=== PATIENT | female | born 1970 | race Caucasian/White ===

== ENCOUNTER 2019-12-23 06:59 | Outpatient (NON) | payer BC, SELFPAY ==
[2019-12-23 18:25] LABS: SARS-CoV-2 RNA PCR Negative
== END 2019-12-23 07:00 ==
PROVIDERS: PCP Internal Medicine; Visit Provider Internal Medicine
DX: Z20.828 Contact with and (suspected) exposure to other viral communicable diseases (principal); R09.89 Other specified symptoms and signs involving the circulatory and respiratory systems
CPT/HCPCS: 87635; C9803; U0003

== ENCOUNTER 2020-05-16 10:05 | Outpatient (CLI) | payer BC, SELFPAY ==
--- NOTE | ~2020-05-16 | MM_ITS ---
EXAMINATION: MM screening haseeb BI w leoncio HISTORY: Screening mammogram TECHNIQUE: Craniocaudal and mediolateral oblique 3-D tomosynthesis images were obtained and synthetic 2-D images were generated. Bilateral rotated lateral CC views. CAD analysis was submitted and interp reted. COMPARISON: 10/04/2012, 08/01/2009 bilateral digital screening mammogram examinations BREAST PARENCHYMAL COMPOSITION: The breasts are extremely dense, which lowers the sensitivity of mamm ography. FINDINGS: Approximately 6 x 9.5 mm circumscribed mass is noted in the posterior inner mid left breast . Diagnostic left mammogram and left breast ultrasound examination are recommended. Otherwise there is no evidence of suspicious mass, calcification, or architectural distortion to sugg est malignancy in either breast. There has been no other suspicious interval change. IMPRESSION: 1. New 6 x 9.5 mm circumscribed mass in the posterior inner mid left breast 2. Diagnostic left mammogram and left breast ultrasound examination are recommended. BI-RADS Category 0: Incomplete: Needs additional imaging evaluation. Reviewed, dictated and finalized at location A. TRY KILLER IMPRESSION: 1. New 6 x 9.5 mm circumscribed mass in the posterior inner mid left breast 2. Diagnostic left mammogram and left breast ultrasound examination are recomme nded. BI-RADS Category 0: Incomplete: Needs additional imaging evaluation.
== END 2020-05-16 10:06 | disposition home or self-care (01) ==
LOC: ANHIMG 10:08
PROVIDERS: PCP Internal Medicine; Visit Provider Obstetrics & Gynecology
DX: Z12.31 Encounter for screening mammogram for malignant neoplasm of breast (principal); R92.8 Other abnormal and inconclusive findings on diagnostic imaging of breast
CPT/HCPCS: 77063; 77067

== ENCOUNTER 2020-05-18 16:58 | Outpatient (CLI) | payer BC, SELFPAY | END 2020-05-18 16:59 | disposition home or self-care (01) | LOC: ANHCOVIDVC 16:58 | PROVIDERS: PCP Internal Medicine | DX: Z23 Encounter for immunization (principal) | CPT/HCPCS: 0001A; 91300 ==

== ENCOUNTER 2020-06-01 09:37 | Outpatient (CLI) | payer BC, SELFPAY ==
--- NOTE | ~2020-06-01 | DEXA_ITS ---
Bone Density Report Name: Sandy Hicks Age: 50 Sex: Female Ethnicity: White Date of : 1970 Indication: postmenopausal; Referring Provider: GENESIS MCKINLEY Study: Bone densitometry was performed. Exam Date: June 01, 2020 Accession number: [id number] Bone Density: Region BMD T-score Z-score Classification AP Spine (L1-L4) 0.740 -2.8 -2.0 Osteoporosis Femoral Neck (Left) 0.573 -2.5 -1.7 Osteoporosis Total Hip (Left) 0.698 -2.0 -1.5 Osteopenia Total Hip Bilateral Avg 0.741 -1.7 -1.2 Osteopenia Femoral Neck (Right) 0.610 -2.2 -1.3 Osteopenia Total Hip (Right) 0.782 -1.3 -0.8 Osteopenia World Health Organization criteria for BMD impression classify patients as: Normal (T-score at or above -1.0), Osteopenia (T-score between -1.0 and -2.5), or Osteoporosis (T-score at or below -2.5). 10-year Fracture Risk: FRAX not reported because: Some T-score for Spine Total or Hip Total or Femoral Neck at or below -2.5 Clinical Information Provided by Patient: Has used the following medications: Vitamin D, Calcium Patient maximum height was 63 Menopause Age: 48 Does not regularly consume dairy products Drinks caffeinated beverages Onset of menses at age 12 Number of children 1 Impression: The patient has osteoporosis, based on the Total Spine T-score. Discussion: HIGH RISK OF FRACTURE. BONE DENSITY IS UNDESIRABLY LOW AT ONE OR MORE SKELETAL SITES, CONSISTENT WITH OSTEOPOROSIS. ALSO, BONE DENSITY IS LOWER THAN EXPECTED FOR AGE AND SEX AT ONE OR MORE SKELETAL SITES; RECOMMEND A DILIGENT SEARCH FOR SECONDARY CAUSES OF BONE LOSS. This patient's lowest T-score meets the World Health Organization's (WHO) criteria for osteoporosis at one or more sites (T-score -2.5 or below). In untreated patients, the risk of osteoporotic fracture increases approximately two-fold for each 1.0 SD decrease in T-score. Low bone density is not the only risk factor for fracture; also consider factors such as patient's age, frailty or poor health, risk of falling, risk of injury, previous osteoporotic fracture, family history of osteoporosis, cigarette smoking, low body weight, etc. Not everyone with low bone mineral density has osteoporosis; osteomalacia and other metabolic bone disorders should also be considered. Patients who have osteoporosis should be evaluated for specific diseases and conditions (secondary causes) that may cause or contribute to bone loss. The [place] [employer] of Clinical Endocrinologists (AACE) and National Osteoporosis Foundation (NOF) recommend pharmacologic intervention for all postmenopausal women whose T-score is in this range. Also, this patient's bone mineral density is below the range considered normal for healthy age-, sex-, and race-matched controls at least one site (Z-score -2.0 or below). This warrants careful
== END 2020-06-01 09:38 | disposition home or self-care (01) ==
LOC: ANHIMG 09:38
PROVIDERS: PCP Internal Medicine; Visit Provider Obstetrics & Gynecology
DX: Z78.0 Asymptomatic menopausal state (principal); M81.0 Age-related osteoporosis without current pathological fracture; M85.852 Other specified disorders of bone density and structure, left thigh; M85.851 Other specified disorders of bone density and structure, right thigh
CPT/HCPCS: 77080

== ENCOUNTER 2020-06-07 13:16 | Outpatient (CLI) | payer BC, SELFPAY ==
--- NOTE | ~2020-06-07 | MMUS_ITS ---
EXAMINATION: MM diagnostic mammo unilat LT, US breast LT limited HISTORY: Left breast mass on screening mammogram TECHNIQUE: Additional 3-D tomosynthesis images of the left breast were performed and synthetic 2-D im ages were generated. CAD analysis was submitted and interpreted. High resolution limited left breast ultrasound was performed. COMPARISON: 05/16/2020, 10/04/2012, 08/01/2009 FINDINGS: MAMMOGRAPHIC FINDINGS: There is a 9 mm x 5 mm circumscribed, equal density mass in the middle third of inner breast at the 9 :00 location 5 cm from the nipple. No associated architectural distortion or suspicious calcification are identified. ULTRASOUND: There is a 9 mm x 3 mm oval, circumscribed, parallel, anechoic mass with internal septation at the 9: 00 location 4 cm from the nipple corresponding to the mammographic finding in question. The mass demo nstrates posterior acoustic enhancement and no internal vascularity. IMPRESSION: 1. Probably benign left breast mass. 2. Recommend 6 month follow-up left diagnostic mammogram and ultrasound. BI-RADS category 3, probably benign findings. Reviewed, dictated and finalized at location A. IMPRESSION: 1. Probably benign left breast mass. 2. Recommend 6 month follow-up left diagnostic mammogram and ultrasound. BI-RADS category 3, probably benign findings.
== END 2020-06-07 13:17 | disposition home or self-care (01) ==
PROVIDERS: PCP Internal Medicine; Visit Provider Obstetrics & Gynecology
DX: R92.8 Other abnormal and inconclusive findings on diagnostic imaging of breast (principal)
CPT/HCPCS: 76642; 77065

== ENCOUNTER 2020-06-08 16:57 | Outpatient (CLI) | payer BC, SELFPAY | END 2020-06-08 16:58 | disposition home or self-care (01) | LOC: ANHCOVIDVC 16:57 | PROVIDERS: PCP Internal Medicine | DX: Z23 Encounter for immunization (principal) | CPT/HCPCS: 0002A; 91300 ==

== ENCOUNTER 2020-11-05 00:31 | Day surgery (SDC) | payer BC, SELFPAY ==
[2020-10-22 13:05] VITALS: BMI 20.7
--- NOTE | 2020-11-05 09:30 | WPDANESEPPF ---
Anes - Initial Pre Proc Eval Procedure: Operation Date: 11/05/20 13:00 Proposed Procedures p Screening Colonoscopy - Jonas Rojas MD Date/Time: 11/05/20 09:30 Surgeon: Jonas Rojas MD Pre Op Diagnosis: neoplasm screening Patient Data Age: 50 Gender: F Height: 1.6 m Weight: 53 kg Allergies Allergy/AdvReac Type Severity Reaction Status Date / Time No Known Allergies Allergy Verified 11/05/20 11:51 Home Medications Medication Instructions Recorded Confirmed Type sertraline 50 mg tablet 75 mg PO DAILY #135 tablet 12/16/19 10/22/20 Rx multivitamin,[id number] 1 tablet PO DAILY 03/22/20 10/22/20 History ibandronate 150 mg tablet 150 mg PO MONTHLY #3 tablet 06/18/20 10/22/20 Rx calcium carbonate-vitamin D3 2 cap PO DAILY 10/22/20 10/22/20 History [Calcium 600 + D(3)] cholecalciferol (vitamin D3) 25 mcg PO DAILY 10/22/20 10/22/20 History [Vitamin D3] Patient hx anesthesia problems: none Family hx anesthesia problems: none PMFSH Past Medical History Medical History (Updated 11/05/20 @ 09:30 by Armen Weeks DO) Anemia Anxiety Depression Kidney stones Marijuana use Missed Pyelonephritis Vaginal delivery Surgical History Surgical History History of elective Family History Family History (Updated 07/20/20 @ 14:54 by Loan Bruce MA) Grandparent Cancer Diabetes mellitus Mother Hypertension Mother Hypertension Family history of rheumatoid arthritis Family history of chronic obstructive pulmonary disease Family history of diabetes mellitus in first degree relative Diabetes mellitus Family history of type 2 diabetes mellitus Grandparent Diabetes mellitus Family history of rheumatoid arthritis Malignant neoplasm of prostate Cerebrovascular accident, Onset Age: 82 Father Family history of alcoholism Family history of heart disease in male family member before age 55 Patient's father is Social History Social History (Updated 09/24/20 @ 11:14 by Loan Bruce MA) Smoking packs per day: 1.5 Smoking cigarettes per day: 30.0 Years smoked: 35 Smoking pack-years: 52.50 Smoking status: Former smoker Tobacco type: cigarettes and e-cigarettes/vaping Second hand tobacco smoke exposure: No Additional smoking assessment comments: QUIT SMOKING 2018- STARTED VAPING AND USES 1-3MG POD DAILY Alcohol intake: former Substance use: current Substance use type: marijuana Other substance usage details: DAILY Living arrangements: with family Spiritual care concerns: No Anes - Eval Final PreProcedure Day of Procedure 11/05/20 09:30 Patient weight: normal Heart: regular rate and rhythm Lungs: clear to auscultation and normal air movement Airway: Mallampati scale class II Neurological: alert and oriented Last oral intake: >/= 8 hours ASA classification: III Emergent: no Anesthetic plan: proceed Anesthesia type and monitoring: general GIVS and standard monitoring Informed Consent: The patient's anesthetic plan and its attendant risks and benefits were discussed with the patient/family/POA. Questions were solicited and answers provided to the satisfaction of the patient/family/POA.
[2020-11-05 11:52] VITALS: BP 99/62; PULSE 74; RESP 20; TEMP 35.9; O2SAT 100; BMI 21.9
[2020-11-05] MEDS: LACTATED RINGERS 1,000 ML 150 ML IV CONT (12:07)
--- NOTE | 2020-11-05 12:33 | PM.HPGS ---
History of Present Illness History of Present Illness Consent: Risks, benefits, and alternatives have been discussed and questions answered. Patient agrees to proceed with procedure. Chief complaint: neoplasm screening Narrative: Sandy Hicks is a 50 year old female for for colon cancer screening. Review of Systems Review of Systems: All systems reviewed & are unremarkable except as noted in HPI and below PMFSH Past Medical History Medical History Anemia Anxiety Depression Kidney stones Marijuana use Missed Pyelonephritis Vaginal delivery Surgical History Surgical History History of elective Family History Family History Grandparent Cancer Diabetes mellitus Mother Hypertension Mother Hypertension Family history of rheumatoid arthritis Family history of chronic obstructive pulmonary disease Family history of diabetes mellitus in first degree relative Diabetes mellitus Family history of type 2 diabetes mellitus Grandparent Diabetes mellitus Family history of rheumatoid arthritis Malignant neoplasm of prostate Cerebrovascular accident, Onset Age: 82 Father Family history of alcoholism Family history of heart disease in male family member before age 55 Patient's father is Social History Social History Smoking packs per day: 1.5 Smoking cigarettes per day: 30.0 Years smoked: 35 Smoking pack-years: 52.50 Smoking status: Former smoker Tobacco type: cigarettes and e-cigarettes/vaping Second hand tobacco smoke exposure: No Additional smoking assessment comments: QUIT SMOKING 2018- STARTED VAPING AND USES 1-3MG POD DAILY Alcohol intake: former Substance use: current Substance use type: marijuana Other substance usage details: DAILY Living arrangements: with family Spiritual care concerns: No Meds Home Medications and Allergies Home Medications Medication Instructions Recorded Confirmed Type sertraline 50 mg tablet 75 mg PO DAILY #135 tablet 12/16/19 10/22/20 Rx multivitamin,[id number]-[id number] 1 tablet PO DAILY 03/22/20 10/22/20 History ibandronate 150 mg tablet 150 mg PO MONTHLY #3 tablet 06/18/20 10/22/20 Rx calcium carbonate-vitamin D3 2 cap PO DAILY 10/22/20 10/22/20 History [Calcium 600 + D(3)] cholecalciferol (vitamin D3) 25 mcg PO DAILY 10/22/20 10/22/20 History [Vitamin D3] Allergies Allergy/AdvReac Type Severity Reaction Status Date / Time No Known Allergies Allergy Verified 11/05/20 11:51 Vital Signs Vital Signs - 24 hr 11/05/20 11:52 Temperature 35.9 C L Pulse Rate 74 Respiratory Rate 20 Blood Pressure 99/62 L Pulse Oximetry 100 Exam Resp: Auscultation: clear to auscultation bilaterally Cardio: Rate: regular rate Rhythm: regular rhythm GI: GI Palp: Yes Soft to palpation and No Tenderness to palpation present (GI) Assessment and Plan Assessment and plan (1) Colon cancer screening: Code(s): Z12.11 - Encounter for screening for malignant neoplasm of colon Status: Acute Assessment and Plan: Colonoscopy with possible biopsy or polypectomy or cautery or injection of substances.
[2020-11-05 13:06] VITALS: BP 101/63; PULSE 66; RESP 20; O2SAT 99
[2020-11-05 13:16] VITALS: BP 110/68; PULSE 64; RESP 20; O2SAT 100
[2020-11-05 13:26] VITALS: BP 116/90; PULSE 68; RESP 18; O2SAT 100
== END 2020-11-05 13:36 | disposition home or self-care (01) ==
PROVIDERS: PCP Internal Medicine; Visit Provider Internal Medicine Gastroenterology
PROC: 0DJD8ZZ Inspection of Lower Intestinal Tract, Via Natural or Artificial Opening Endoscopic (ICD-10-PCS; CPT 45378; principal; 2020-11-05 13:00)
DX: Z12.11 Encounter for screening for malignant neoplasm of colon (principal); D64.9 Anemia, unspecified; F41.8 Other specified anxiety disorders; Z87.891 Personal history of nicotine dependence; F12.90 Cannabis use, unspecified, uncomplicated
CPT/HCPCS: 45378; J2704; J7120

== ENCOUNTER 2020-12-14 12:24 | Emergency (ER) | payer BC, SELFPAY ==
[2020-12-14 12:33] VITALS: BP 134/88; PULSE 80; RESP 18; TEMP 36.3; O2SAT 100
--- NOTE | 2020-12-14 12:59 | ED.UPPEXIN ---
HPI - Extremity Injury (Upper) General Chief Complaint: Extremity Injury, Upper Stated Complaint: FALL/INJURED R ELBOW/ARM Time Seen by Provider: 12/14/20 12:47 Source: patient and RN notes reviewed Mode of arrival: ambulatory Limitations: no limitations History of Present Illness HPI narrative: Patient presents today complaining of right shoulder pain. She slipped yesterday at work, falling yesterday onto her right arm. Reports the shoulder and upper arm only hurts when she raises it above her head. She currently rates her pain 1/10 at rest, which increases to 4/10 with movement. Denies numbness or tingling in the arm or hand. She has tried no [id number] interventions or medications prior to arrival. The pain continued to worsen throughout the night last night and she notified her employer, who wanted her to come get it looked at today. MD complaint: injury to: right, shoulder and arm Related Data Home Medications Medication Instructions Recorded Confirmed multivitamin,[id number] 1 tablet PO DAILY 03/22/20 12/14/20 Calcium 600 + D(3) 2 cap PO DAILY 10/22/20 12/14/20 cholecalciferol (vitamin D3) 25 mcg PO DAILY 10/22/20 12/14/20 [Vitamin D3] Allergies Allergy/AdvReac Type Severity Reaction Status Date / Time No Known Allergies Allergy Verified 12/14/20 12:32 Review of Systems Review of Systems: CONSTITUTIONAL: Denies body aches, fever, chills, or sweats. EYES: Denies visual changes, redness, or discharge. ENT: Denies rhinorrhea, congestion, sore throat, or otalgia. CARDIOVASCULAR: Denies chest pain, palpitations, or edema. RESPIRATORY: Denies cough or dyspnea. GASTROINTESTINAL: Denies abdominal pain, nausea, vomiting, or diarrhea. GENITOURINARY: Denies dysuria or hematuria. SKIN: Denies rash, itching, or wounds. MUSCULOSKELETAL: Denies back pain, or myalgia.+ Right upper arm and shoulder pain NEUROLOGIC: Denies headache, numbness, tingling, or weakness. PSYCH: Denies depression or anxiety. [facility] Past Medical History Medical History Anemia Anxiety Depression Kidney stones Marijuana use Missed Pyelonephritis Vaginal delivery Surgical History Surgical History History of elective Family History Family History Grandparent Cancer Diabetes mellitus Mother Hypertension Mother Hypertension Family history of rheumatoid arthritis Family history of chronic obstructive pulmonary disease Family history of diabetes mellitus in first degree relative Diabetes mellitus Family history of type 2 diabetes mellitus Grandparent Diabetes mellitus Family history of rheumatoid arthritis Malignant neoplasm of prostate Cerebrovascular accident, Onset Age: 82 Father Family history of alcoholism Family history of heart disease in male family member before age 55 Patient's father is Social History Social History Smoking packs per day: 1.5 Smoking cigarettes per day: 30.0 Years smoked: 35 Smoking pack-years: 52.50 Smoking status: Current every day smoker Tobacco type: cigarettes and e-cigarettes/vaping Second hand tobacco smoke exposure: No Additional smoking assessment comments: QUIT SMOKING 2018- STARTED VAPING AND USES 1-3MG POD DAILY Alcohol intake: former Substance use: current Substance use type: marijuana Other substance usage details: DAILY Spiritual care concerns: No Comments At time of signature, I have reviewed and agree with nursing past medical, surgical, social and family history unless otherwise noted. Please see nursing chart for further information. There is no relevant family history pertinent to the presenting complaint Exam Narrative: GENERAL: Well-appearing, we
== END 2020-12-14 13:04 | disposition home or self-care (01) ==
PROVIDERS: Emergency Provider Nurse Practitioner; PCP Internal Medicine
DX: S46.912A Strain of unspecified muscle, fascia and tendon at shoulder and upper arm level, left arm, initial encounter (principal); W01.0XXA Fall on same level from slipping, tripping and stumbling without subsequent striking against object, initial encounter; Y99.0 Civilian activity done for income or pay; F17.200 Nicotine dependence, unspecified, uncomplicated; F41.9 Anxiety disorder, unspecified; F32.9 Major depressive disorder, single episode, unspecified
CPT/HCPCS: 99212; G0463

== ENCOUNTER 2020-12-24 11:27 | Outpatient (CLI) | payer BC, SELFPAY ==
--- NOTE | ~2020-12-24 | MMUS_ITS ---
EXAMINATION: MM diagnostic haseeb LT w leoncio, US breast LT limited HISTORY: Six-month follow-up of 9:00 left breast TECHNIQUE: ML, MLO and craniocaudal 3-D tomosynthesis images of were performed and synthetic 2-D imag es were generated. CAD analysis was submitted and interpreted. High resolution targeted 9:00 left keara ast ultrasound was performed. COMPARISON: 06/07/2020 diagnostic left mammogram and limited left breast ultrasound 05/16/2020 bilateral digital screening mammogram BREAST PARENCHYMAL COMPOSITION: The breasts are heterogeneously dense, which may obscure small masses . FINDINGS: MAMMOGRAPHIC FINDINGS: Stable appearing circumscribed approximately 5 x 9.5 mm opacity at 9:00 at mid depth in the left joss st, not significantly changed since 05/16/2020 screening mammogram. No interval suspicious mass, architectural distortion, malignant calcification, skin thickening or re traction of the left breast is detected.. ULTRASOUND: 1:00 4 cm from nipple: 6.4 x 2.5 x 6.2 mm septated sonolucency with through transmission, consistent with septated benign cyst IMPRESSION: 1. Benign finding 2. Routine mammographic screening is recommended. BI-RADS Category 2: Benign finding(s). Reviewed, dictated and finalized at location A. IMPRESSION: 1. Benign finding 2. Routine mammographic screening is recommended. BI-RADS Category 2: Benign finding(s).
== END 2020-12-24 11:28 | disposition home or self-care (01) ==
LOC: ANHIMG 11:30
PROVIDERS: PCP Internal Medicine; Visit Provider Obstetrics & Gynecology
DX: N63.20 Unspecified lump in the left breast, unspecified quadrant (principal); R92.8 Other abnormal and inconclusive findings on diagnostic imaging of breast
CPT/HCPCS: 76642; 77061; 77065; G0279

== ENCOUNTER 2021-11-04 09:50 | Emergency (ER) | payer BC, SELFPAY ==
[2021-11-04 10:16] VITALS: BP 110/86; PULSE 71; RESP 16; TEMP 37.1; O2SAT 100
--- NOTE | 2021-11-04 10:43 | ED.SKABFB ---
HPI - Skin/Abscess/Foreign Bdy General Chief complaint: Skin/Abscess/Foreign Body Stated complaint: insect bite Time Seen by Provider: 11/04/21 10:43 Source: patient Mode of arrival: ambulatory Limitations: no limitations History of Present Illness HPI narrative: 51-year-old female presented for complaint of insect bite to the left mid calf first noticed yesterday. She outlined it with a pen and endorses redness and itching She denies significant pain or drainage. She has multiple insect bites and states she applies hand gore maker to them. She is concerned she has a brown recluse bite as she has been renovating her home. Denies numbness, tingling, weakness or fever or chills. Related Data Allergies Allergy/AdvReac Type Severity Reaction Status Date / Time No Known Allergies Allergy Verified 11/04/21 10:23 Review of Systems Review of Systems: CONSTITUTIONAL: Denies body aches, fever, chills, or sweats. CARDIOVASCULAR: Denies chest pain, palpitations, or edema. RESPIRATORY: Denies cough or dyspnea. GASTROINTESTINAL: Denies abdominal pain, nausea, vomiting, or diarrhea. SKIN: reports insect bite left leg MUSCULOSKELETAL: Denies back pain, joint pain, or myalgia. NEUROLOGIC: Denies headache, numbness, tingling, or weakness. [facility] Past Medical History Medical History Anemia Anxiety Depression Kidney stones Marijuana use Missed Pyelonephritis Vaginal delivery Surgical History Surgical History History of elective Family History Family History Grandparent Cancer Diabetes mellitus Mother Hypertension Mother Hypertension Family history of rheumatoid arthritis Family history of chronic obstructive pulmonary disease Family history of diabetes mellitus in first degree relative Diabetes mellitus Family history of type 2 diabetes mellitus Grandparent Diabetes mellitus Family history of rheumatoid arthritis Malignant neoplasm of prostate Cerebrovascular accident, Onset Age: 82 Father Family history of alcoholism Family history of heart disease in male family member before age 55 Patient's father is Social History Social History Smoking packs per day: 1.5 Smoking cigarettes per day: 30.0 Years smoked: 35 Smoking pack-years: 52.50 Smoking status: Current every day smoker Tobacco type: cigarettes and e-cigarettes/vaping Second hand tobacco smoke exposure: No Additional smoking assessment comments: QUIT SMOKING 2018- STARTED VAPING AND USES 1-3MG POD DAILY Alcohol intake: former Substance use: current Substance use type: marijuana Other substance usage details: DAILY Spiritual care concerns: No Comments At time of signature, I have reviewed and agree with nursing past medical, surgical, social and family history unless otherwise noted. Please see nursing chart for further information. There is no relevant family history pertinent to the presenting complaint Exam Narrative: GENERAL: Well-appearing ENT: Mucous membranes moist. Oropharynx without edema, erythema or lesions. CHEST: Clear to auscultation. HEART: Regular rate and rhythm. SKIN: Warm, dry. Left medial calf with 1cm erythema and pinpoint dark center, also with excoriation c/w scratching; nontender no drainage, no surrounding induration or fluctuance. NEURO: Alert and oriented x3. Course Course Emergency Course: Patient is aware of diagnosis, understands and agrees to treatment plan. Anticipatory guidance given. Patient agrees to follow-up as directed and is aware of reasons to seek care at the emergency department. Portions of this record may have been created with voice recognition software Level of Care: Express Care Visit Vital Si
== END 2021-11-04 10:57 | disposition home or self-care (01) ==
PROVIDERS: Emergency Provider Nurse Practitioner Family; PCP Internal Medicine
DX: S80.862A Insect bite (nonvenomous), left lower leg, initial encounter (principal); W57.XXXA Bitten or stung by nonvenomous insect and other nonvenomous arthropods, initial encounter; F17.290 Nicotine dependence, other tobacco product, uncomplicated; F41.9 Anxiety disorder, unspecified; F32.A Depression, unspecified
CPT/HCPCS: 99213; G0463

== ENCOUNTER 2022-11-20 12:45 | Outpatient (CLI) | payer BC, SELFPAY ==
--- NOTE | ~2022-11-20 | DEXA_ITS ---
Bone Density Report Name: JEFE SAMUELS Age: 52 Sex: Female Ethnicity: White Date of : 1970 Indication: postmenopausal; screening for osteoporosis; Referring Provider: GENESSI MCKINLEY Study: Bone densitometry was performed. Exam Date: November 20, 2022 Accession number: [id number] Bone Density: Region BMD T-score Z-score Classification AP Spine (L1-L4) 0.777 -2.5 -1.5 Osteoporosis Femoral Neck (Left) 0.587 -2.4 -1.4 Osteopenia Total Hip (Left) 0.691 -2.1 -1.4 Osteopenia Femoral Neck (Right) 0.598 -2.3 -1.3 Osteopenia Total Hip (Right) 0.738 -1.7 -1.1 Osteopenia Total Hip Mean 0.715 -1.9 -1.3 Osteopenia World Health Organization criteria for BMD impression classify patients as: Normal (T-score at or above -1.0), Osteopenia (T-score between -1.0 and -2.5), or Osteoporosis (T-score at or below -2.5). 10-year Fracture Risk: FRAX not reported because: Some T-score for Spine Total or Hip Total or Femoral Neck at or below -2.5 Treated for osteoporosis Clinical Information Provided by Patient: Is being treated for osteoporosis Has used the following medications: Prolia (i.e. denosumab), Calcium, MTV, vit D included in calcium Patient maximum height was 63 Menopause Age: 49 Drinks caffeinated beverages Onset of menses at age 15 Number of children 1 Impression: The patient has osteoporosis, based on the Total Spine T-score. Discussion: It is important to ask patients whether they are taking their medications and to encourage continued and appropriate compliance with their osteoporosis therapies to reduce fracture risk. It is also important to review their risk factors and encourage appropriate calcium and vitamin D intakes, exercise, fall prevention and other lifestyle measures. Follow-Up: Consider a repeat BMD and Vertebral Fracture Assessment (VFA) exam in 2 years or sooner if medically necessary, to reassess this patient's status. Reported by: FRITZ on 11/20/2022 1:11:00 PM. Reviewed, dictated and finalized at location AKarina ESCOBEDO
== END 2022-11-20 12:46 ==
PROVIDERS: PCP Chiropractor; Visit Provider Obstetrics & Gynecology
DX: M81.0 Age-related osteoporosis without current pathological fracture (principal); M85.852 Other specified disorders of bone density and structure, left thigh; M85.851 Other specified disorders of bone density and structure, right thigh
CPT/HCPCS: 77080

== ENCOUNTER 2022-12-23 14:32 | Emergency (ER) | payer BC, SELFPAY ==
[2022-12-23] VITALS (10 sets, daily range): BP systolic 109–123; BP diastolic 59–73; PULSE 67–83; RESP 10–18; TEMP 36.8; O2SAT 96–100
--- NOTE | ~2022-12-23 | CT_ITS ---
EXAMINATION: CT abdomen pelvis wo con DATE: 12/23/2022 15:42 INDICATION: Right flank pain. Nausea. History of kidney stones. TECHNIQUE: Computed tomography (CT) of the abdomen and pelvis was performed without intravenous contr ast. Automated exposure control and iterative reconstruction technique were employed. Exam dose: 180 .30 mGy-cm total exam DLP. COMPARISON: None. FINDINGS: Middle lobe discoid scar. Focal groundglass infiltrate or atelectasis in the posterior left lower lobe. Normal heart size. No pericardial or pleural effusion. Small sliding hiatal hernia. The liver, gallbladder, bile ducts, spleen, pancreas, pancreatic duct and adrenal glands are unremark able. 2.5 mm upper pole nonobstructing right renal calculus and approximately 3.5 mm lower pole nonobstruct ing right renal calculus. No left renal calculus. No left or right ureteral calculus or left or right hydroureteronephrosis. Th e urinary bladder is unremarkable. Normal caliber of the abdominal aorta. No intraperitoneal or retroperitoneal or pelvic mass lesion or adenopathy or ascites is detected. Normal appendix. No bowel obstruction, bowel wall thickening, pneumatosis or intraperitoneal free air . Included skeletal structures are unremarkable. IMPRESSION: Nonobstructive right nephrolithiasis. Normal appendix Reviewed, dictated and finalized at Location [facility]. Reviewed, dictated and finalized at location A.
--- NOTE | ~2022-12-23 | CT_ITS ---
EXAMINATION: CT brain wo con DATE: 12/23/2022 17:37 INDICATION: Headache. TECHNIQUE: Computed tomography (CT) of the head was performed without intravenous contrast. The mA wa s adjusted according to patient size. Iterative reconstruction technique was employed. The dose-lengt h product was 605.33 mGy-cm. COMPARISON: None FINDINGS: There is no intracranial hemorrhage, acute infarction, or abnormal intracranial mass lesion . The ventricles are normal in size. There is mild mucosal thickening in the paranasal sinuses. Normal. The mastoid air cells are normal. IMPRESSION: 1. Normal brain. Reviewed, dictated and finalized at location E. IMPRESSION: 1. Normal brain.
--- NOTE | 2022-12-23 15:11 | ED.NAVMDI ---
HPI - Nausea/Vomiting/Diarrhea General Chief complaint: Nausea/Vomiting/Diarrhea Stated complaint: nausea, [place], flank pain Time Seen by Provider: 12/23/22 15:10 Source: patient and family Mode of arrival: ambulatory Limitations: no limitations History of Present Illness HPI Narrative: 52 years old white female, right flank pain, nausea and vomiting started 2 hours prior to arrival, history of kidney stone. Patient also complaining of headache everything came together 2 hours prior to arrival to the ED Related Data Allergies Allergy/AdvReac Type Severity Reaction Status Date / Time No Known Allergies Allergy Verified 12/23/22 14:45 Review of Systems Review of Systems: All systems reviewed & are unremarkable except as noted in HPI and below PMFSH Past Medical History Medical History Anemia Anxiety Depression Kidney stones Marijuana use Missed Pyelonephritis Urinary incontinence Vaginal delivery Surgical History Surgical History History of elective Family History Family History Grandparent Cancer Diabetes mellitus Mother Hypertension Mother Hypertension Family history of rheumatoid arthritis Family history of chronic obstructive pulmonary disease Family history of diabetes mellitus in first degree relative Diabetes mellitus Family history of type 2 diabetes mellitus Grandparent Diabetes mellitus Family history of rheumatoid arthritis Malignant neoplasm of prostate Cerebrovascular accident, Onset Age: 82 Father Family history of alcoholism Family history of heart disease in male family member before age 55 Patient's father is Social History Social History Smoking packs per day: 1.5 Smoking cigarettes per day: 30.0 Years smoked: 35 Smoking pack-years: 52.50 Smoking status: Current every day smoker Tobacco type: cigarettes and e-cigarettes/vaping Second hand tobacco smoke exposure: No Additional smoking assessment comments: QUIT SMOKING 2018- STARTED VAPING AND USES 1-3MG POD DAILY Alcohol intake: former Substance use: current Substance use type: marijuana Other substance usage details: DAILY Lack of Transportation: No Lack of Food: Never True Current Housing: I Have Housing Concerned About Future Housing: No Difficulty Paying Gas/Electric Bills: No Difficulty Paying for Meds: No Currently Unemployed: No Education: Master's Degree or Higher Difficulty w/ Childcare or Family Care: No Living arrangements: with family Spiritual care concerns: No Exam Narrative: General appearance: Well-developed, well-nourished, in pain, restless Skin: Normal color Head: Normocephalic, nontraumatic Eyes: Clear conjunctiva ENT: Oropharynx normal, ears normal, nose normal Neck: Supple, nontender Chest and respiratory: Airway patent, no respiratory distress, no accessory muscle use Heart: Regular rate/rhythm Abdomen: Soft, moderate tenderness right flank and right lower quadrant, no organomegaly, quiet bowel sounds Vascular: Normal peripheral pulses, normal capillary refill. Musculoskeletal: Normal range of motion, nontender back Neurologic: Alert and oriented ?3, LINE CONTROLLER is normal as tested, no gross motor deficit Course Reevaluation(s) Reevaluation #1: Feeling much better after IV Dilaudid and 1 mg of Ativan. Date: 12/23/22 Time: 17:12 Vital Signs Vital signs: Vital Signs Pulse Rate 72 12/23/22 14:39 Respiratory Rate 16
[2022-12-23 15:19] LABS: Basophils Absolute Auto 0.1 K/mm3 (0.0-0.1); Eosinophils Absolute Auto 0.1 K/mm3 (0-0.3); Eosinophils Percent Auto 1.2 % (0-4.4); Hematocrit 38.1 % (37.0-47.0); Hemoglobin 12.5 g/dL (12.0-15.0); Immature Granulocyte Absolute 0.01 K/mm3 (0.00-0.031); Immature Granulocyte Percent A 0.2 % (0-0.5); Lymphocytes Absolute Auto 0.26 K/mm3 (0.9-3.2); Mean Corpuscular HGB Conc 32.8 g/dl (32-36); Mean Corpuscular Hemoglobin 30.6 pg (26-34); Mean Corpuscular Volume 93.4 fl (80-100); Mean Platelet Volume 10.6 fl (7.4-10.4); Monocytes Absolute Auto 0.7 K/mm3 (0.1-0.6); Monocytes Percent Auto 13.3 % (2.6-8.5); Neutrophils Absolute Auto 4.1 K/mm3 (1.3-6.7); Neutrophils Percent Auto 79.3 % (45.5-73.1); Platelet Count Result 153 k/mm3 (150-375); Red Blood Count 4.08 M/mm3 (4.2-5.4); White Blood Count 5.2 K/mm3 (4.5-10.0)
[2022-12-23] MEDS: HYDROmorphone HCL INJ (*CRX) 1 MG/ML SYR 0.5 MG IV PUSH (15:24)
[2022-12-23] MEDS: ONDANSETRON INJ 4 MG/2 ML VIAL IV PUSH (15:25)
[2022-12-23] MEDS: SODIUM CHLORIDE 0.9% IV 1,000 ML 999 ML IV CONT (15:26)
[2022-12-23 15:29] LABS: Alanine Aminotransferase 21 U/L (6-35); Albumin Level 4.2 g/dL (3.5-5.1); Alkaline Phosphatase 55 U/L (38-126); Anion Gap 6 mmol/L (8-16); Aspartate Amino Transferase 27 U/L (14-36); Bilirubin,Total 0.5 mg/dL (0.2-1.3); Blood Urea Nitrogen 11 mg/dL (7-17); Calcium 8.2 mg/dL (8.4-10.2); Carbon Dioxide 23 mmol/L (22-30); Chloride 105 mmol/L (98-107); Estimated CRCL calculation 70 ml/min; Estimated Glomerular Filt Rate > 60; Glucose 100 mg/dL (65-110); Lipase 52 U/L (23-300); Potassium 3.8 mmol/L (3.4-5.0); Sodium 134 mmol/L (137-145)
[2022-12-23] MEDS: LORazepam INJ (*CRX) 2 MG/ML VIAL 1 MG IV PUSH (16:43)
--- NOTE | 2022-12-23 17:29 | PC.NURSE ---
Pt assist to BR instructed pt the need for urine specimen. Pt sat on toilet stated she couldn't urinate. Once standing pt urinated on floor.
--- NOTE | 2022-12-23 18:38 | PC.NURSE ---
1700: Attempted to straight cath no urine returned
[2022-12-23 19:08] LABS: Appearance Urine Clear (Clear); Bacteria Urine None Seen /hpf; Bilirubin Urine Negative (Negative); Blood Urine 2+ (Negative); Color Urine Yellow (Yellow); Glucose Urine UA Negative (Negative); Ketones Urine 2+ mg/dL (Negative); Leukocyte Esterase Ur Negative LEU/UL (Negative); Need Manual Microscopic Reviewed; Nitrate Urine Negative (Negative); Non Pathogenic Casts 0-2; Protein Urine Trace mg/dL (Negative); RBC Urine 21-50 /hpf (0-2); Specific Grav Ur 1.014 (1.001-1.035); Squamous Epithelial Cell Urine None seen /hpf (Few); Urobilinogen Urine 0.2 mg/dL (<2.0); WBC Urine 0-5 /hpf
[2022-12-23 19:09] LABS: Add Urine Microscopic? YES
== END 2022-12-23 19:50 | disposition home or self-care (01) ==
PROVIDERS: Emergency Medicine; Emergency Provider Emergency Medicine; PCP Family Medicine
DX: R51.9 Headache, unspecified (principal); R10.9 Unspecified abdominal pain; R32 Unspecified urinary incontinence; F41.9 Anxiety disorder, unspecified; F32.A Depression, unspecified; F17.290 Nicotine dependence, other tobacco product, uncomplicated; Z87.442 Personal history of urinary calculi
CPT/HCPCS: 36415; 70450; 74176; 80053; 81001; 83690; 85025; 96361; 96374; 96375; 99284; J1170; J2060; J2405; J7030

== ENCOUNTER 2022-12-26 09:04 | Emergency (ER) | payer BC, SELFPAY ==
[2022-12-26 09:24] VITALS: BP 104/77; PULSE 68; RESP 16; TEMP 36.8; O2SAT 100
--- NOTE | 2022-12-26 10:04 | ED.URI ---
HPI - URI/Sore Throat General Chief Complaint: Upper Respiratory Infection Stated Complaint: Covid Source: patient and RN notes reviewed Mode of arrival: ambulatory Limitations: no limitations History of Present Illness HPI Narrative: 52-year-old female presented after testing positive for COVID this morning. Endorses occasional chills over the past 3 days. her partner also tested positive this morning. She states 3 days ago she was in the emergency room for possible kidney stones, and states she was not wearing a mask and thinks she contracted COVID at that time. She has been vaccinated and has not had COVID before. She currently denies shortness of breath, wheezing, nausea vomiting, fevers or lethargy. Not taking anything for symptoms. MD elicited complaint: cough Related Data Allergies Allergy/AdvReac Type Severity Reaction Status Date / Time No Known Allergies Allergy Verified 12/23/22 14:45 Review of Systems Review of Systems: CONSTITUTIONAL: Denies malaise, sweats, fever EYES: Denies visual changes, redness, or discharge ENT: Denies rhinorrhea, congestion, sinus pain, otalgia, sore throat CARDIOVASCULAR: Denies chest pain, palpitations, edema RESPIRATORY: Denies cough, post nasal drainage, dyspnea GASTROINTESTINAL: Denies abdominal pain, nausea, vomiting, diarrhea SKIN: Denies rash or itching MUSCULOSKELETAL: Denies myalgia NEUROLOGIC: Denies headache PMFSH Past Medical History Medical History Anemia Anxiety Depression Kidney stones Marijuana use Missed Pyelonephritis Urinary incontinence Vaginal delivery Surgical History Surgical History History of elective Family History Family History Grandparent Cancer Diabetes mellitus Mother Hypertension Mother Hypertension Family history of rheumatoid arthritis Family history of chronic obstructive pulmonary disease Family history of diabetes mellitus in first degree relative Diabetes mellitus Family history of type 2 diabetes mellitus Grandparent Diabetes mellitus Family history of rheumatoid arthritis Malignant neoplasm of prostate Cerebrovascular accident, Onset Age: 82 Father Family history of alcoholism Family history of heart disease in male family member before age 55 Patient's father is Social History Social History Smoking packs per day: 1.5 Smoking cigarettes per day: 30.0 Years smoked: 35 Smoking pack-years: 52.50 Smoking status: Current every day smoker Tobacco type: cigarettes and e-cigarettes/vaping Second hand tobacco smoke exposure: No Additional smoking assessment comments: QUIT SMOKING 2018- STARTED VAPING AND USES 1-3MG POD DAILY Alcohol intake: former Substance use: current Substance use type: marijuana Other substance usage details: DAILY Lack of Transportation: No Lack of Food: Never True Current Housing: I Have Housing Concerned About Future Housing: No Difficulty Paying Gas/Electric Bills: No Difficulty Paying for Meds: No Currently Unemployed: No Education: Master's Degree or Higher Difficulty w/ Childcare or Family Care: No Living arrangements: with family Spiritual care concerns: No Exam Narrative: GENERAL: well-appearing, nontoxic HEAD: Normocephalic EYES: PERRLA, conjunctivae clear ENT: Mucous membranes moist. TM pearly deluna with dull light reflex bilaterally; no tragal tenderness. NECK: Supple. No lymphadenopathy CHEST: Clear to auscultation, breath sounds equal. No wheezing, rhonchi, rales, or stridor. No respiratory distress, speaks in full sentences. HEART: Regular rate and rhythm. No murmur heard. SKIN: Warm, dry, no rash. NEURO: Alert and oriented x3. PSYCH: Normal mood and affect
== END 2022-12-26 10:14 | disposition home or self-care (01) ==
PROVIDERS: Emergency Provider Nurse Practitioner Family; PCP Family Medicine
DX: U07.1 COVID-19 (principal); F17.210 Nicotine dependence, cigarettes, uncomplicated; F17.290 Nicotine dependence, other tobacco product, uncomplicated
CPT/HCPCS: 99211; G0463

== ENCOUNTER 2023-01-29 09:56 | Emergency (ER) | payer BC, SELFPAY ==
--- NOTE | ~2023-01-29 | CT_ITS ---
EXAMINATION: CT abdomen pelvis wo con DATE: 01/29/2023 10:28 INDICATION: Nausea, history of kidney stones TECHNIQUE: Computed tomography (CT) of the abdomen and pelvis was performed without intravenous contr ast. The dose-length product (DLP) was 197.88 mGy-cm. Automated exposure control and iterative recons truction technique were employed. COMPARISON: 12/23/2022 FINDINGS: The lung bases are clear. The heart size is normal. The liver, spleen, pancreas, gallbladde r, and adrenal glands are normal. There is a 3 mm stone in the proximal right ureter. There is a 2 mm nonobstructing stone of the right kidney upper pole. The left kidney is unremarkable. No pathologica lly enlarged abdominal or pelvic lymph nodes are identified. No free intraperitoneal gas or evidence of bowel obstruction. The appendix is normal. IMPRESSION: 1. 3 mm stone of the proximal right ureter. 2. Nonobstructing right nephrolithiasis. Reviewed, dictated and finalized at location F. SINGER
--- NOTE | 2023-01-29 09:59 | ED.FEMALEGU ---
HPI - Female Genitourinary General Chief complaint: Urogenital-Female Stated complaint: Kidney stones Time Seen by Provider: 01/29/23 09:59 Source: patient and family (spouse) Mode of arrival: ambulatory Limitations: no limitations History of Present Illness HPI Narrative: Patient is a 52-year-old female with past medical history as noted in chart who presents to the emergency department today with orders today for evaluation of nausea that started about 2 hours prior to ER arrival. Id spouse is present with patient. States that this is how it has happened to her in the past with kidney stones. She states she went to the bathroom twice before they left the house and there was no blood in the urine or stone noted. Patient denies any pain with urination, odor, frequency. She states there is no flank pain. She states that she has significant nausea and chills/sweats. Denies any diarrhea, abdominal pain, headache dizziness, chest pain, shortness of breath, vaginal discharge, or any other symptoms. Related Data Home Medications Medication Instructions Recorded Confirmed Bone Up BYMOUTH 01/15/23 denosumab 60 mg/mL subcutaneous 60 mg subcut [id number] 01/15/23 syringe (Prolia) Allergies Allergy/AdvReac Type Severity Reaction Status Date / Time codeine Allergy Unknown Vomiting Verified 01/15/23 13:19 Review of Systems Review of Systems: CONSTITUTIONAL: +chills/sweats. Denies fever. EYES: Denies visual changes, redness, or discharge. ENT: Denies rhinorrhea, congestion, sore throat, or otalgia. CARDIOVASCULAR: Denies chest pain, palpitations, or edema. RESPIRATORY: Denies cough or dyspnea. GASTROINTESTINAL: +nausea/vomiting. Denies abdominal or diarrhea. GENITOURINARY: Denies dysuria or hematuria. Denies flank pain. SKIN: Denies rash or itching. MUSCULOSKELETAL: Denies back pain, joint pain, or myalgia. NEUROLOGIC: Denies headache, numbness, or weakness. PSYCHIATRIC: Denies anxiety or depression. All systems reviewed & are unremarkable except as noted in HPI and below PMFSH Past Medical History Medical History Anemia Anxiety Depression Kidney stones Marijuana use Missed Pyelonephritis Urinary incontinence Vaginal delivery Surgical History Surgical History History of elective Family History Family History Grandparent Cancer Diabetes mellitus Mother Hypertension Mother Hypertension Family history of rheumatoid arthritis Family history of chronic obstructive pulmonary disease Family history of diabetes mellitus in first degree relative Diabetes mellitus Family history of type 2 diabetes mellitus Grandparent Diabetes mellitus Family history of rheumatoid arthritis Malignant neoplasm of prostate Cerebrovascular accident, Onset Age: 82 Father Family history of alcoholism Family history of heart disease in male family member before age 55 Patient's father is Social History Social History Smoking packs per day: 1.5 Smoking cigarettes per day: 30.0 Years smoked: 35 Smoking pack-years: 52.50 Smoking status: Current every day smoker Tobacco type: cigarettes and e-cigarettes/vaping Second hand tobacco smoke exposure: No Additional smoking assessment comments: QUIT SMOKING 2018- STARTED VAPING AND USES 1-3MG POD DAILY Alcohol intake: former Substance use: current Substance use type: marijuana Other substance usage details: DAILY Lack of Transportation: No Lack of Food: Never True Current Housing: I Have Housing Concerned About Future Housing: No Difficulty Paying Gas/Electric Bills: No Difficulty Paying for Meds: No Currently Unemployed: No Education: Master's Degree or Higher Difficulty w/ Childcar
[2023-01-29 10:11] LABS: Basophils Absolute Auto 0.1 K/mm3 (0.0-0.1); Basophils Percent Auto 0.5 % (0.2-1.2); Eosinophils Absolute Auto 0.2 K/mm3 (0-0.3); Eosinophils Percent Auto 1.3 % (0-4.4); Hematocrit 49.7 % (37.0-47.0); Immature Granulocyte Absolute 0.05 K/mm3 (0.00-0.031); Immature Granulocyte Percent A 0.3 % (0-0.5); Lymphocytes Absolute Auto 1.57 K/mm3 (0.9-3.2); Lymphocytes Percent Auto 9.1 % (18.3-44.2); Mean Corpuscular HGB Conc 32.2 g/dl (32-36); Mean Corpuscular Hemoglobin 30.7 pg (26-34); Mean Corpuscular Volume 95.2 fl (80-100); Mean Platelet Volume 11.3 fl (7.4-10.4); Monocytes Absolute Auto 1.3 K/mm3 (0.1-0.6); Monocytes Percent Auto 7.6 % (2.6-8.5); Neutrophils Absolute Auto 14.1 K/mm3 (1.3-6.7); Neutrophils Percent Auto 81.2 % (45.5-73.1); Platelet Count Result 211 k/mm3 (150-375); Red Blood Count 5.22 M/mm3 (4.2-5.4); Red Cell Distribution Width 13.2 % (11.5-14.5); White Blood Count 17.3 K/mm3 (4.5-10.0)
[2023-01-29 10:23] VITALS: BP 136/94; PULSE 87; RESP 18; TEMP 36.2; O2SAT 100
[2023-01-29 10:24] LABS: Alanine Aminotransferase 22 U/L (6-35); Albumin Level 4.9 g/dL (3.5-5.1); Alkaline Phosphatase 52 U/L (38-126); Anion Gap 12 mmol/L (8-16); Aspartate Amino Transferase 36 U/L (14-36); Bilirubin,Total 0.8 mg/dL (0.2-1.3); Blood Urea Nitrogen 18 mg/dL (7-17); Calcium 8.9 mg/dL (8.4-10.2); Carbon Dioxide 23 mmol/L (22-30); Chloride 107 mmol/L (98-107); Estimated CRCL calculation 66 ml/min; Estimated Glomerular Filt Rate > 60; Glucose 125 mg/dL (65-110); Potassium 4.8 mmol/L (3.4-5.0); Sodium 142 mmol/L (137-145)
[2023-01-29] MEDS: ONDANSETRON INJ 4 MG/2 ML VIAL (10:41)
[2023-01-29] MEDS: SODIUM CHLORIDE 0.9% IV 1,000 ML 999 ML IV CONT (10:41)
[2023-01-29] MEDS: diphenhydrAMINE HCl INJ 50 MG/ML VIAL 25 MG IV PUSH (10:41)
[2023-01-29] MEDS: KETOROLAC 30 MG/ML VIAL (*BKC) IV PUSH (10:42)
[2023-01-29 10:46] VITALS: BP 122/60; O2SAT 100
[2023-01-29] MEDS: HALOPERIDOL LACTATE 5 MG/ML VIAL 1 MG IV PUSH (10:53)
[2023-01-29] MEDS: TAMSULOSIN HCL 0.4 MG CAPSULE PO (11:06)
--- NOTE | 2023-01-29 11:08 | PC.NURSE ---
Pt urinated in the bed while vomiting. Unable to give sample
[2023-01-29 11:22] LABS: Lactic Acid Reflex 1.9 mmol/L (0.7-2.0)
[2023-01-29 12:10] LABS: Appearance Urine Clear (Clear); Bacteria Urine None Seen /hpf; Bilirubin Urine Negative (Negative); Blood Urine 2+ (Negative); Color Urine Yellow (Yellow); Glucose Urine UA Negative (Negative); Ketones Urine Negative (Negative); Leukocyte Esterase Ur Negative LEU/UL (Negative); Nitrate Urine Negative (Negative); Non Pathogenic Casts 0-2; Protein Urine 1+ mg/dL (Negative); RBC Urine 21-50 /hpf (0-2); Specific Grav Ur 1.017 (1.001-1.035); Squamous Epithelial Cell Urine None seen /hpf (Few); Urobilinogen Urine 0.2 mg/dL (<2.0); WBC Urine 0-5 /hpf
[2023-01-29 12:17] LABS: Add Urine Microscopic? YES
[2023-01-29 12:18] LABS: Amphetamine Screen Urine Negative (Negative); Barbiturate Screen Urine Negative (Negative); Benzodiazepines Screen Urine Negative (Negative); Cannabinoid Screen Urine Positive (Negative); Cocaine Screen Urine Negative (Negative); Methadone Screen Urine Negative (Negative); Opiate Screen Urine Negative (Negative); Phencyclidine Screen Urine Negative (Negative)
[2023-01-29] MEDS: BELLADONNA ALK/PHENOB ELIX 10 ML, MAG HYDROX/ALUMINUM HYD/SIMETH 30 ML, LIDOCAINE HCL 2... PO (12:34)
[2023-01-29 12:36] VITALS: BP 138/78; PULSE 88; RESP 16; O2SAT 97
== END 2023-01-29 12:48 | disposition home or self-care (01) ==
PROVIDERS: Emergency Medicine; Emergency Provider Nurse Practitioner; PCP Family Medicine
DX: N20.2 Calculus of kidney with calculus of ureter (principal); R11.2 Nausea with vomiting, unspecified; Z87.442 Personal history of urinary calculi; F41.9 Anxiety disorder, unspecified; F32.A Depression, unspecified; Z86.2 Personal history of diseases of the blood and blood-forming organs and certain disorders involving the immune mechanism; F17.290 Nicotine dependence, other tobacco product, uncomplicated
CPT/HCPCS: 36415; 74176; 80053; 80307; 81001; 83605; 85025; 96361; 96374; 99284; A9270; J1200; J1630; J1885; J2405; J7030

== ENCOUNTER 2023-02-02 10:58 | Outpatient (CLI) | payer BC, SELFPAY ==
--- NOTE | ~2023-02-02 | CT_ITS ---
CT Scan of the Chest without Contrast: Clinical Indication: Lung cancer screening, personal history of nicotine dependence Technique: Contiguous sections were acquired throughout the chest without intravenous contrast. Dose reduction technique was used on this scan by utilizing automated exposure control and iterative recon struction technique. The dose-length product (DLP) was 68.26 mGy-cm. Findings: There is no evidence of any significant mediastinal, hilar or axillary lymphadenopathy. The mediastin al soft tissues appear normal. There is no evidence of pleural or pericardial effusion. There is focal scarring at the anteromedial right middle lobe. No pulmonary nodule evident. Images through the upper abdomen reveal no abnormalities. Impression: Lung RADS 2: Benign appearance. 12 month follow-up screening CT advised. Reviewed, dictated and finalized at location . 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 12 month follow-up screening CT advised.
--- NOTE | ~2023-02-02 | XR_ITS ---
AP view of the pelvis and AP and lateral views of the right hip Clinical history: Pain Findings: No acute fracture or dislocation is seen. Osseous alignment is anatomic. Bilateral hip and SI joint spaces are preserved. Soft tissues are unremarkable. Impression: No significant abnormality is seen. Reviewed, dictated and finalized at [facility]. RATORY MONITOR Impression: No significant abnormality is seen.
--- NOTE | ~2023-02-02 | XR_ITS ---
Supine and upright views of the abdomen Clinical history: Abdominal pain renal stone COMPARISON: 06/19/2018 Findings: Bowel gas pattern is nonspecific. No evidence for obstruction or free air. Possible punctat e right renal stone. Osseous structures are intact. Impression: Possible punctate right renal stone. Reviewed, dictated and finalized at [facility]. 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
--- NOTE | ~2023-02-02 | XR_ITS ---
Lumbosacral Spine: AP and lateral views Clinical History: Pain Findings: The normal lordotic curve is maintained. The vertebral bodies and posterior elements are i ntact. The intervertebral disc spaces are preserved. The sacroiliac joints are normally outlined. Impression: No significant abnormality. Reviewed, dictated and finalized at [facility]. CH MAKER Impression: No significant abnormality.
== END 2023-02-02 10:59 | disposition home or self-care (01) ==
PROVIDERS: PCP Family Medicine; Visit Provider Family Medicine
DX: Z12.2 Encounter for screening for malignant neoplasm of respiratory organs (principal); Z87.891 Personal history of nicotine dependence; N20.0 Calculus of kidney
CPT/HCPCS: 71271; 72100; 73502; 74018

== ENCOUNTER 2024-01-11 13:10 | Outpatient (CLI) | payer BC, SELFPAY ==
--- NOTE | ~2024-01-11 | MM_ITS ---
EXAMINATION: MM screening haseeb BI w leoncio HISTORY: Screening TECHNIQUE: Craniocaudal and mediolateral oblique 3-D tomosynthesis images were obtained and synthetic 2-D images were generated. CAD analysis was submitted and interpreted. COMPARISON: Comparison to multiple prior studies sequentially, with oldest reviewed study dated 05/16. BREAST PARENCHYMAL COMPOSITION: Dense: The breasts are heterogeneously dense, which may obscure small masses FINDINGS: There is no evidence of suspicious mass, calcification, or architectural distortion to sugg est malignancy in either breast. There has been no suspicious interval change. IMPRESSION: 1. No mammographic evidence of malignancy. 2. Recommend routine screening mammography in one year. BI-RADS Category 1: Negative Reviewed, dictated and finalized at location B. 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
== END 2024-01-11 13:11 | disposition home or self-care (01) ==
LOC: CHSIMG 13:11
PROVIDERS: PCP Family Medicine; Visit Provider Obstetrics & Gynecology
DX: Z12.31 Encounter for screening mammogram for malignant neoplasm of breast (principal)
CPT/HCPCS: 77063; 77067

== ENCOUNTER 2024-10-28 11:04 | Observation (INO) | payer BC, SELFPAY ==
[2024-10-28] VITALS (10 sets, daily range): BP systolic 103–147; BP diastolic 59–89; PULSE 47–79; RESP 12–28; TEMP 35.8–36.8; O2SAT 97–100
--- NOTE | ~2024-10-28 | CT_ITS ---
EXAMINATION: CT abdomen pelvis w con DATE: 10/28/2024 12:57 INDICATION: Nonlocalized abdominal pain TECHNIQUE: Computed tomography (CT) of the abdomen and pelvis was performed with intravenous contrast. The dose-length product was 201.55 mGy-cm. COMPARISON: 01/29/2023 FINDINGS: The liver, spleen, adrenal glands and pancreas unremarkable. Gallbladder is unremarkable. Kidneys are unremarkable. Abdominal aorta is not aneurysmal. No enlarged lymph nodes identified in the abdomen or pelvis identified. Bladder is unremarkable. No dilated bowel loops. Appendix is not dilated in this partially air-filled. Thickening of the henderson of the large bowel. IMPRESSION: 1. Thickening of the henderson of the large bowel. Differential includes incomplete bowel wall distention or colitis. Colitis is favored. Reviewed, dictated and finalized at location Q.
--- NOTE | 2024-10-28 11:17 | ECG_ITS ---
Test Date: 2024-10-28 11:19:09 Measurements Intervals [place] Rate: 47 P: 264 WV: 117 QRS: 64 QRSD: 93 T: 58 QT: 448 QTc: 396 Interpretive Statements ECTOPIC ATRIAL BRADYCARDIA CANNOT R/O SEPTAL INFARCT, AGE INDETERMINATE BASELINE ARTIFACT- I, II, III, AVR, AVL, AVF ABNORMAL ECG No previous ECG available for comparison Electronically Signed On 10-28-2024 11:39:18 CDT by Tristen Vo D.O.
[2024-10-28 11:38] LABS: Hematocrit 45.6 % (37.0-47.0); Hemoglobin 15.0 g/dL (12.0-15.0); Immature Granulocyte Percent A 0.6 % (0-0.5); Lymphocytes Absolute Auto 1.64 K/mm3 (0.9-3.2); Mean Corpuscular HGB Conc 32.9 g/dl (32-36); Mean Corpuscular Hemoglobin 30.1 pg (26-34); Mean Corpuscular Volume 91.6 fl (80-100); Nucleated Red Blood Cells Absolute Auto 0.000 K/mm3 (0.0-0.012); Nucleated Red Blood Cells Perc 0.0 % (0.0-0.2); Platelet Count Result 217 k/mm3 (150-375); Red Blood Count 4.98 M/mm3 (4.2-5.4); White Blood Count 9.5 K/mm3 (4.5-10.0)
[2024-10-28 12:00] LABS: Alanine Aminotransferase 22 U/L (6-35); Albumin Level 4.6 g/dL (3.5-5.1); Alkaline Phosphatase 81 U/L (38-126); Anion Gap 7 mmol/L (4-12); Aspartate Amino Transferase 35 U/L (14-36); Bilirubin,Total 0.7 mg/dL (0.2-1.3); Blood Urea Nitrogen 11 mg/dL (7-17); Calcium 9.4 mg/dL (8.4-10.2); Carbon Dioxide 26 mmol/L (22-30); Chloride 108 mmol/L (98-107); Estimated CRCL calculation 65 ml/min; Estimated Glomerular Filt Rate > 60; Glucose 121 mg/dL (65-110); Lipase 57 U/L (23-300); Potassium 4.0 mmol/L (3.4-5.0); Sodium 141 mmol/L (137-145); Total Protein 7.4 g/dL (6.3-8.2)
[2024-10-28] MEDS: KETOROLAC 30 MG/ML VIAL (*BKC) IV PUSH (12:05)
[2024-10-28] MEDS: PROMETHAZINE HCL 25 MG/ML AMPUL 12.5 MG IV PUSH (12:05)
[2024-10-28] MEDS: SODIUM CHLORIDE 0.9% IV 1,000 ML 999 ML IV CONT (12:05)
[2024-10-28 12:30] LABS: BEDSIDEPREGUCG Negative (Negative)
--- OUTSIDE RECORDS SUMMARY | 2024-10-28 12:47 | XMS_ITS | Clinical Summary ---
Author Organization [facility] Address [address] [place] [address] Care Team Providers Care Boiler Coverer Name Role Phone Unavailable Primary Care Provider Unavailabl e Source Comments [facility],non-owned Affiliates and Associated Physician Practices is amultiple site organization consisting of ambulatory clinics and hospital sitesin [place], [place], [place] and [place]. This disclosure is being madepursuant to the Care Everywhere program and may not contain all information available regarding this patient. 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 Gender Identity Not on file Sexual Orientation Not on file Plan of Treatment Health Maintenance Due Date Last Done Comments COLOGUARD (AGES 45-75) - COL ON CA SCREENING 1969 COLON MONITORING 1969 COLONOSCOPY - COLON CA SCREENING 1969 CT COLONOGRAPHY - COLON CA SCREENING 1969 Colorectal Cancer Screening 1969 FIT - COLON CA SCREENING 1969 FLEX SIG - COLON CA SCREENING 1969 LIPID TESTING 1969 MAMMOGRAM 1969 HIV SCREENING 01/31/1984 HEPATITIS C SCREENING 01/26/1987 DTAP/TDAP/TD VACCINES (1 - Tdap) 01/31/1988 HEPATITIS B VACCINE (1 of 3 - 19+ 3-dose series) 01/31/1988 PNEUMOCOCCAL VACCINE 50+ (1 of 1 - PCV) 2019 ZOSTER VACCINE (1 of 2) 2019 COVID-19 VACCINE ( - 2023-2 5 season) 2023 DEPRESSION SCREENING 03/09/2024 INFLUENZA VACCINE (#1) 2024 HIB VACCINE Aged Out No longer eligi ble based on patient's age to complete this topic HPV VACCINE Aged Out No longer eligi ble based on patient's age to complete this topic MENINGOCOCCAL (Group B) VACC INE SHARED DECISION-MAKING Aged Out No longer eligibl e based on patient's age to complete this topic MENINGOCOCCAL GROUPS A/C/Y/W VACCINE Aged Out No longer eligible b ased on patient's age to complete this topic Insurance
[2024-10-28 12:51] LABS: Add Urine Microscopic? YES; Appearance Urine Turbid (Clear); Glucose Urine UA Negative (Negative); Leukocyte Esterase Ur Negative LEU/UL (Negative); Need Manual Microscopic Reviewed; Nitrate Urine Negative (Negative); Non Pathogenic Casts 0-2; Specific Grav Ur 1.014 (1.001-1.035)
[2024-10-28 13:17] LABS: BEDSIDEPREGUCG Negative (Negative)
[2024-10-28 13:24] LABS: Pregnancy On Board Control Positive
--- NOTE | 2024-10-28 14:21 | ED_ITS ---
HPI - Abdominal Pain General Chief Complaint: Abdominal Pain Stated Complaint: Abd Pain Time Seen by Provider: 10/28/24 11:27 History of Present Illness HPI narrative: Patient is a 54-year-old female who presents ER with abdominal pain. Sudden onset this morning. Cramping in nature. Associated diarrhea and vomiting. Concerned she may have a kidney stone issues had 1 in the past. No fevers or chills. Related Data Allergies Allergy/AdvReac Type Severity Reaction Status Date / Time codeine Allergy Unknown Vomiting Verified 10/28/24 18:18 morphine Allergy Unknown Unknown Uncoded 10/28/24 18:18 Review of Systems 2 Review of Systems: All systems reviewed & are unremarkable except as noted in HPI and below Constitutional: Constitutional: Reports no additional constitutional complaints Cardiovascular: Cardiovascular: Reports no additional cardiovascular complaints Respiratory: Respiratory: Reports no additional respiratory complaints Gastrointestinal: Gastrointestinal: Reports no additional gastrointestinal complaints Musculoskeletal: Musculoskeletal: Reports no additional musculoskeletal complaints PMFSH Past Medical History Medical History Irritable bowel Senile osteoporosis Urinary incontinence Depression Anxiety Pyelonephritis Missed Vaginal delivery Kidney stones Anemia Marijuana use Surgical History Surgical History History of elective Family History Family History Grandparent Cancer Diabetes mellitus Mother Hypertension Mother Hypertension Family history of rheumatoid arthritis Family history of chronic obstructive pulmonary disease Family history of diabetes mellitus in first degree relative Diabetes mellitus Family history of type 2 diabetes mellitus Grandparent Diabetes mellitus Family history of rheumatoid arthritis Malignant neoplasm of prostate Cerebrovascular accident, Onset Age: 82 Father Family history of alcoholism Family history of heart disease in male family member before age 55 Patient's father is Social History Social History Smoking packs per day: 1 Smoking cigarettes per day: 20.0 Years smoked: 35 Smoking pack-years: 35.00 Smoking status: Current every day smoker Tobacco type: e-cigarettes/vaping Second hand tobacco smoke exposure: No Additional smoking assessment comments: QUIT SMOKING 2018- STARTED VAPING AND USES 1-3MG POD DAILY Alcohol intake: current Drinks per week: 4 Substance use: current Substance use type: marijuana Other substance usage details: DAILY Lack of Transportation: No Lack of Food: Never True Current Housing: I Have Housing Concerned About Future Housing: No Difficulty Paying Gas/Electric Bills: No Difficulty Paying for Meds: No Currently Unemployed: YES Education: Associate Degree Difficulty w/ Childcare or Family Care: No Living arrangements: with family Spiritual care concerns: No Exam 2 Narrative: GENERAL: Well-appearing, well-nourished, and in no acute distress. HEAD: Normocephalic, atraumatic. EYES: PERRL and EOMI. ENT: Mucous membranes moist. CHEST: Clear to auscultation. No respiratory distress. HEART: Regular rate and rhythm. Normal peripheral pulses. ABDOMEN: Soft, nontender, nondistended. EXTREMITIES: Normal range of motion. No edema. SKIN: Warm, dry, no rash. NEURO: Alert and oriented x3. PSYCH: Normal mood and affect. Course Course Emergency Course: Patient is very anxious and received some Valium. She continues have body shaking and vomiting as well as unintentional release of stool and urine. Will plan admission for observation and symptom control. She has already received Zofran and Phenergan IV as well as Toradol and Bentyl. Vital Signs Vital signs: Vital Signs Temperature 96.5 F L 10/28/24 10:57 Pulse Rate 47 L 10/28/24 10:57 Respiratory Rate 18 10/28/24 10:57 Blood Pressure 147/77 H 10/28/24 10:57 Pulse Oximetry 99 10/28/24 10:57 Oxygen Delivery Room Air 10/28/24 10:57 Temperature 97.9 F 10/28/24 14:33 Pulse Rate 56 L 10/28/24 17:58 Respiratory Rate 16 10/28/24 17:58 Blood Pressure 113/70 10/28/24 17:58 Pulse Oximetry 98 10/28/24 17:58 Oxygen Delivery Room Air 10/28/24 10:57 MDM - Abdominal Pain Lab Data 10/28/24 11:32 10/28/24 11:32 Labs: Lab Results 10/28/24 10/28/24 10/28/24 Range/Units 11:32 12:23 12:24 WBC 9.5 (4.5-10.0) K/mm3 RBC 4.98 (4.2-5.4) M/mm3 Hgb 15.0 (12.0-15.0) g/dL Hct 45.6 (37.0-47.0) % MCV 91.6 (80-100) fl MCH 30.1 (26-34) pg MCHC 32.9 (32-36) g/dl RDW 12.7 (11.5-14.5) % Plt Count 217 (150-375) k/mm3 MPV 10.9 H (7.4-10.4) fl Immature Gran % (Auto) 0.6 H (0-0.5) % Neut % (Auto) 78.3 H (45.5-73.1) % Lymph % (Auto) 17.2 L (18.3-44.2) % [place] % (Auto) 2.3 L (2.6-8.5) % Eos % (Auto) 0.8 (0-4.4) % Baso % (Auto) 0.8 (0.2-1.2) % Lymph # (Auto) 1.64 (0.9-3.2) K/mm3 [place] # (Auto) 0.2 (0.1-0.6) K/mm3 Eos # (Auto) 0.1 (0-0.3) K/mm3 Baso # (Auto) 0.1 (0.0-0.1) K/mm3 Abs Immat Gran (auto) 0.06 H (0.00-0.031) K/mm3 Absolute Neuts (auto) 7.5 H (1.3-6.7) K/mm3 Absolute Nucleated RBC 0.000 (0.0-0.012) K/mm3 Nucleated RBC % 0.0 (0.0-0.2) % Sodium 141 (137-145) mmol/L Potassium 4.0 (3.4-5.0) mmol/L Chloride 108 H (98-107) mmol/L Carbon Dioxide 26 (22-30) mmol/L Anion Gap 7 (4-12) mmol/L BUN 11 D (7-17) mg/dL Creatinine 0.63 L (0.7-1.0) mg/dL Estim Creat Clear Calc 65 ml/min Estimated GFR > 60 (59 - ) Glucose 121 H (65-110) mg/dL Calcium 9.4 (8.4-10.2) mg/dL Total Bilirubin 0.7 (0.2-1.3) mg/dL AST 35 (14-36) U/L ALT 22 (6-35) U/L Alkaline Phosphatase 81 (38-126) U/L Total Protein 7.4 (6.3-8.2) g/dL Albumin 4.6 (3.5-5.1) g/dL Lipase 57 (23-300) U/L Urine Color Yellow (Yellow) Urine Appearance Turbid H (Clear) Urine pH 7.5 (5.0-9.0) Ur Specific [place] 1.014 (1.001-1.035) Urine Protein 1+ H (Negative) mg/dL Urine Glucose (UA) Negative (Negative) mg/dL Urine Ketones 1+ H (Negative) mg/dL Ur Blood (Man) 1+ H (Negative) Urine Nitrate Negative (Negative) Urine Bilirubin Negative (Negative) Urine Urobilinogen 1.0 (<2.0) mg/dL Add Ur Microanalysis Reviewed Leukocyte Esterase Rfl Negative (Negative) SONDRA/UL Urine RBC 11-20 H (0-2) /hpf Urine WBC 0-5 (0-3) /hpf Ur Squamous Epith Cells Few (Few) /hpf Urine Bacteria None seen /hpf Urine Casts 0-2 POC Urine HCG, Qual (Negative) Urine Test Negative 10/28/24 10/28/24 Range/Units 12:26 13:15 WBC (4.5-10.0) K/mm3 RBC (4.2-5.4) M/mm3 Hgb (12.0-15.0) g/dL Hct (37.0-47.0) % MCV (80-100) fl MCH (26-34) pg MCHC (32-36) g/dl RDW (11.5-14.5) % Plt Count (150-375) k/mm3 MPV (7.4-10.4) fl Immature Gran % (Auto) (0-0.5) % Neut % (Auto) (45.5-73.1) % Lymph % (Auto) (18.3-44.2) % [place] % (Auto) (2.6-8.5) % Eos % (Auto) (0-4.4) % Baso % (Auto) (0.2-1.2) % Lymph # (Auto) (0.9-3.2) K/mm3 [place] # (Auto) (0.1-0.6) K/mm3 Eos # (Auto) (0-0.3) K/mm3 Baso # (Auto) (0.0-0.1) K/mm3 Abs Immat Gran (auto) (0.00-0.031) K/mm3 Absolute Neuts (auto) (1.3-6.7) K/mm3 Absolute Nucleated RBC (0.0-0.012) K/mm3 Nucleated RBC % (0.0-0.2) % Sodium (137-145) mmol/L Potassium (3.4-5.0) mmol/L Chloride (98-107) mmol/L Carbon Dioxide (22-30) mmol/L Anion Gap (4-12) mmol/L BUN (7-17) mg/dL Creatinine (0.7-1.0) mg/dL Estim Creat Clear Calc ml/min Estimated GFR (59 - ) Glucose (65-110) mg/dL Calcium (8.4-10.2) mg/dL Total Bilirubin (0.2-1.3) mg/dL AST (14-36) U/L ALT (6-35) U/L Alkaline Phosphatase (38-126) U/L Total Protein (6.3-8.2) g/dL Albumin (3.5-5.1) g/dL Lipase (23-300) U/L Urine Color (Yellow) Urine Appearance (Clear) Urine pH (5.0-9.0) Ur Specific [place] (1.001-1.035) Urine Protein (Negative) mg/dL Urine Glucose (UA) (Negative) mg/dL Urine Ketones (Negative) mg/dL Ur Blood (Man) (Negative) Urine Nitrate (Negative) Urine Bilirubin (Negative) Urine Urobilinogen (<2.0) mg/dL Add Ur Microanalysis Leukocyte Esterase Rfl (Negative) SONDRA/UL Urine RBC (0-2) /hpf Urine WBC (0-3) /hpf Ur Squamous Epith Cells (Few) /hpf Urine Bacteria /hpf Urine Casts POC Urine HCG, Qual Negative Negative (Negative) Urine Test Imaging Data Radiologist's impression: ITS Impressions Abdomen/Pelvis CT 10/28/24 13:03 IMPRESSION: 1. Thickening of the henderson of the large bowel. Differential includes incomplete bowel wall distention or colitis. Colitis is favored. Discharge Plan Discharge Clinical Impression: Colitis, Vomiting Patient Disposition: Still a Patient Condition: Stable
[2024-10-28] MEDS: DICYCLOMINE HCL INJ 20 MG/2 ML VIAL IM (14:30)
[2024-10-28] MEDS: diazePAM INJ (*CRX) 10 MG/2 ML SYRINGE 5 MG IV PUSH (15:25)
--- NOTE | 2024-10-28 16:21 | PM.IMHP ---
H&P: HPI History of Present Illness Date/Time: 10/28/24 16:21 Chief Complaint: Nausea, Vomiting, Diarrhea Narrative: 54 y/o F with PMH of depression, anxiety, kidney stones, and bipolar disorder presents here with nausea, vomiting, diarrhea, and lower abdominal pain. The patient presents here from home via EMS for further evaluation of nausea, vomiting, diarrhea and abdominal pain. She reports sudden onset of symptoms this morning. She describes the abdominal pain as lower, midline, severe, nonradiating, intermittent in severity/coming in waves, aggravated by touch/movement, and no alleviating factors. She denies fever, chills, body aches. She has a history of kidney stones, however she felt the pain was different than her previous experience but her feels it is similar. She reports her previous imaging when she had a kidney stone did not necessarily show it on imaging. Initial VS at presentation: 96.5? F, HR 47, R 140 7/77, and 99% on RA. ED workup showed: No leukocytosis, no anemia, no significant electrolyte derangements, creatinine 0.63 and GFR >60, glucose 121, and UA was turbid with 1+ protein/1+ ketones/1+ blood/11-[address] of the abdomen/pelvis showed thickening of the henderson of the large bowel (incomplete bowel wall distension or colitis, colitis favored). Review of Systems Review of Systems: All systems reviewed & are unremarkable except as noted in HPI and below PMFSH Past Medical History Medical History Irritable bowel Senile osteoporosis Urinary incontinence Depression Anxiety Pyelonephritis Missed Vaginal delivery Kidney stones Anemia Marijuana use Surgical History Surgical History History of elective Family History Family History Grandparent Cancer Diabetes mellitus Mother Hypertension Mother Hypertension Family history of rheumatoid arthritis Family history of chronic obstructive pulmonary disease Family history of diabetes mellitus in first degree relative Diabetes mellitus Family history of type 2 diabetes mellitus Grandparent Diabetes mellitus Family history of rheumatoid arthritis Malignant neoplasm of prostate Cerebrovascular accident, Onset Age: 82 Father Family history of alcoholism Family history of heart disease in male family member before age 55 Patient's father is Social History Social History Smoking packs per day: 1 Smoking cigarettes per day: 20.0 Years smoked: 35 Smoking pack-years: 35.00 Smoking status: Current every day smoker Tobacco type: e-cigarettes/vaping Second hand tobacco smoke exposure: No Additional smoking assessment comments: QUIT SMOKING 2018- STARTED VAPING AND USES 1-3MG POD DAILY Alcohol intake: current Drinks per week: 4 Substance use: current Substance use type: marijuana Other substance usage details: DAILY Lack of Transportation: No Lack of Food: Never True Current Housing: I Have Housing Concerned About Future Housing: No Difficulty Paying Gas/Electric Bills: No Difficulty Paying for Meds: No Currently Unemployed: YES Education: Associate Degree Difficulty w/ Childcare or Family Care: No Living arrangements: with family Spiritual care concerns: No Meds Home Medications and Allergies Home Medications ?Medication ?Instructions ?Recorded ?Confirmed ?Type escitalopram oxalate 10 mg tablet 10 mg PO DAILY #90 tabs 09/22/24 10/28/24 Rx (Lexapro) Allergies Allergy/AdvReac Type Severity Reaction Status Date / Time codeine Allergy Unknown Vomiting Verified 10/28/24 18:18 morphine Allergy Unknown Unknown Uncoded 10/28/24 18:18 Vital Signs Vital Signs - 24 hr 10/28/24 10:57 10/28/24 12:29 10/28/24 13:04 Temperature 96.5 F L 96.7 F L Pulse Rate 47 L 54 L 57 L Respiratory Rate 18 28 H 12 Blood Pressure 147/77 H 140/74 128/76 Pulse Oximetry 99 97 100 Oxygen Delivery Room Air 10/28/24 13:56 10/28/24 14:33 10/28/24 16:08 Temperature 97.9 F Pulse Rate 66 60 59 L Respiratory Rate 18 14 14 Blood Pressure 103/60 129/83 132/89 Pulse Oximetry 100 100 98 Oxygen Delivery Exam Const: Other: Uncomfortable, crying, writing and stretcher in ED, female, nontoxic appearance HENMT: Face/Nose/Sinus: Normal nares present Mouth: Yes moist mucous membranes Eyes: General: appearance normal, both eyes and all related structures Sclera: sclerae normal Pupils: Equal, round and reactive pupils present EOM: EOMs intact bilaterally Resp: Effort & Inspection: normal respiratory effort Auscultation: clear to auscultation bilaterally Cardio: Rate: regular rate Rhythm: regular rhythm Other: S1-S2 present without murmur, rub, ectopy GI: Other: Patient crying out in pain prior to abdomen being palpated. Very light palpation eliciting more crying/discomfort. Normoactive bowel sounds in all quadrants. Abdomen is soft and nondistended. Skin: General skin exam: normal color and no rashes or lesions noted Wounds: no wounds Neuro: Speech: normal speech Motor exam (neuro): 5/5 motor strength present throughout Sensory Exam: normal sensation Other: A&O x4 Extrem: General: normal to inspection Psych: Mental Status: mental status grossly normal Attitude: Belligerent attititude/behavior present Other: Crying, writhing/rolling in stretcher H&P: Results Labs Labs: Short CBC 10/28/24 Range/Units 11:32 WBC 9.5 (4.5-10.0) K/mm3 Hgb 15.0 (12.0-15.0) g/dL Hct 45.6 (37.0-47.0) % Plt Count 217 (150-375) k/mm3 BMP 10/28/24 11:32 Sodium 141 Potassium 4.0 Chloride 108 H Carbon Dioxide 26 BUN 11 D Creatinine 0.63 L Glucose 121 H Calcium 9.4 Liver Function 10/28/24 Range/Units 11:32 Total Bilirubin 0.7 (0.2-1.3) mg/dL AST 35 (14-36) U/L ALT 22 (6-35) U/L Alkaline Phosphatase 81 (38-126) U/L Albumin 4.6 (3.5-5.1) g/dL Urine 10/28/24 Range/Units 12:24 Urine Color Yellow (Yellow) Urine Appearance Turbid H (Clear) Urine pH 7.5 (5.0-9.0) Ur Specific [place] 1.014 (1.001-1.035) Urine Protein 1+ H (Negative) mg/dL Urine Glucose (UA) Negative (Negative) mg/dL Assessment and Plan Assessment and plan (1) Colitis: Code(s): K52.9 - Noninfective gastroenteritis and colitis, unspecified Status: Acute Assessment and Plan: - CT abd/pelvis: Thickening of the henderson of the large bowel. Differential includes incomplete bowel wall distention or colitis. Colitis is favored. - started on Ceftriaxone + Metronidazole on 10/28 - IV fluids: 1L bolus, now on 125 mL/hr - clear liquid diet - pain medication prn and antiemetics p.r.n. - daily clinical reassessment for improvement (2) Recurrent major depressive disorder: Qualifiers: Active/Remission status: currently active Major depression episode severity: unspecified Qualified Code(s): F33.9 - Major depressive disorder, recurrent, unspecified Code(s): F33.9 - Major depressive disorder, recurrent, unspecified Status: Acute Assessment and Plan: - continue home medications: Lexapro - given Valium in the ED for anxiety. Will additionally give Haldol 5 mg IV for nausea/anxiety. Plan Diet: clear liquid GI Prophylaxis: n/a DVT Prophylaxis: SCDs IV fluids: 1L -> 125 mL/hr Lines/Tubes: peripheral IV Code Status: Full code Quality VTE Prophylaxis VTE prophylaxis: mechanical ordered Hospitalist MIPS Advance Care Plan I have confirmed that the patient's Advanced Care Plan is present, code status is documented, or surrogate decision maker is listed in patient medical record.: Yes Medication Reconciliation I have utilized all available resources to obtain, update and review the patients current medications (includes all prescriptions, OTC, herbals, cannabis, and nutritional supplements).: Yes
[2024-10-28] MEDS: SODIUM CHLORIDE 0.9% IV 1,000 ML 125 ML IV CONT (17:04)
[2024-10-28] MEDS: HALOPERIDOL LACTATE 5 MG/ML VIAL IV PUSH (17:32)
--- NOTE | 2024-10-28 17:53 | ADMGEN ---
This patient, Sandy Hicks, was admitted to 2 Medical Room 251-01. Patient/family oriented to hospital policies and general routines including ID bracelet, bed and alarms, visiting hours, pain management, procedures, bathroom and other care routines, personal items, smoking policy, room service/diet, and visiting hours. Information on how to activate the Rapid Response Team has been discussed. Patient/Family are encouraged to report perceived risks to care and to ask questions if they do not understand what they are told or what they should do.
[2024-10-28] MEDS: cefTRIAXone 1 GM in SODIUM CHLORIDE 0.9% IV 50 ML 100 ML IVPB (20:53)
[2024-10-28] MEDS: metroNIDAZOLE 500 MG/ISO 100ML 500 MG/100 ML BAG 100 MG IVPB (21:38)
[2024-10-29] MEDS: SODIUM CHLORIDE 0.9% IV 1,000 ML 125 ML IV CONT ×3 (03:53→23:32)
[2024-10-29 04:21] VITALS: BP 98/60; PULSE 61; RESP 16; TEMP 36.7; O2SAT 98
[2024-10-29 05:01] LABS: Hematocrit 36.9 % (37.0-47.0); Hemoglobin 12.1 g/dL (12.0-15.0); Immature Granulocyte Percent A 0.4 % (0-0.5); Lymphocytes Absolute Auto 1.39 K/mm3 (0.9-3.2); Mean Corpuscular HGB Conc 32.8 g/dl (32-36); Mean Corpuscular Hemoglobin 30.6 pg (26-34); Mean Corpuscular Volume 93.2 fl (80-100); Nucleated Red Blood Cells Absolute Auto 0.000 K/mm3 (0.0-0.012); Nucleated Red Blood Cells Perc 0.0 % (0.0-0.2); Platelet Count Result 168 k/mm3 (150-375); Red Blood Count 3.96 M/mm3 (4.2-5.4); White Blood Count 8.4 K/mm3 (4.5-10.0)
[2024-10-29 05:12] LABS: Anion Gap 8 mmol/L (4-12); Blood Urea Nitrogen 13 mg/dL (7-17); Calcium 8.6 mg/dL (8.4-10.2); Carbon Dioxide 18 mmol/L (22-30); Chloride 110 mmol/L (98-107); Estimated CRCL calculation 64 ml/min; Estimated Glomerular Filt Rate > 60; Glucose 102 mg/dL (65-110); Magnesium 1.8 mg/dL (1.6-2.3); Potassium 3.5 mmol/L (3.4-5.0); Sodium 136 mmol/L (137-145)
[2024-10-29] MEDS: metroNIDAZOLE 500 MG/ISO 100ML 500 MG/100 ML BAG 100 MG IVPB ×2 (05:12→13:25)
--- NOTE | 2024-10-29 07:26 | PM.IMPN ---
Progress Note: A&P Assessment and Plan (1) Colitis: Code(s): K52.9 - Noninfective gastroenteritis and colitis, unspecified Status: Acute Assessment and Plan: - CT abd/pelvis: Thickening of the henderson of the large bowel. Differential includes incomplete bowel wall distention or colitis. Colitis is favored. - DC Ceftriaxone + Metronidazole -started on Augmentin and Flagyl - IV fluids: 1L bolus, now on 125 mL/hr - clear liquid diet - pain medication prn and antiemetics p.r.n. - daily clinical reassessment for improvement (2) Recurrent major depressive disorder: Qualifiers: Active/Remission status: currently active Major depression episode severity: unspecified Qualified Code(s): F33.9 - Major depressive disorder, recurrent, unspecified Code(s): F33.9 - Major depressive disorder, recurrent, unspecified Status: Acute Assessment and Plan: - continue home medications: Lexapro - given Valium in the ED for anxiety. Will additionally give Haldol 5 mg IV for nausea/anxiety. Plan Diet: clear liquid GI Prophylaxis: n/a DVT Prophylaxis: SCDs IV fluids: 1L -> 125 mL/hr Lines/Tubes: peripheral IV Code Status: Full code Subjective Date/time seen: 10/29/24 07:26 Interval history: Advance the diet as tolerated. Patient reports her abdominal pain is improving. Discontinued IV antibiotics and started oral Augmentin and Flagyl Review of Systems Review of Systems: All systems reviewed & are unremarkable except as noted in HPI and below Exam Const: Other: Uncomfortable, crying, writing and stretcher in ED, female, nontoxic appearance HENMT: Face/Nose/Sinus: Normal nares present Mouth: Yes moist mucous membranes Eyes: General: appearance normal, both eyes and all related structures Sclera: sclerae normal Pupils: Equal, round and reactive pupils present EOM: EOMs intact bilaterally Resp: Effort & Inspection: normal respiratory effort Auscultation: clear to auscultation bilaterally Cardio: Rate: regular rate Rhythm: regular rhythm Other: S1-S2 present without murmur, rub, ectopy GI: Other: Patient crying out in pain prior to abdomen being palpated. Very light palpation eliciting more crying/discomfort. Normoactive bowel sounds in all quadrants. Abdomen is soft and nondistended. Skin: General skin exam: normal color and no rashes or lesions noted Wounds: no wounds Neuro: Cranial nerves: Yes Equal, round and reactive pupils present Speech: normal speech Motor exam (neuro): 5/5 motor strength present throughout Sensory Exam: normal sensation Other: A&O x4 Extrem: General: normal to inspection Psych: Mental Status: mental status grossly normal Attitude: Belligerent attititude/behavior present Other: Crying, writhing/rolling in stretcher Objective Data Vital Signs Vital Signs: Vital Signs - 24 hr 10/28/24 10:57 10/28/24 12:29 10/28/24 13:04 Temperature 96.5 F L 96.7 F L Pulse Rate 47 L 54 L 57 L Respiratory Rate 18 28 H 12 Blood Pressure 147/77 H 140/74 128/76 Pulse Oximetry 99 97 100 Oxygen Delivery Room Air 10/28/24 13:56 10/28/24 14:33 10/28/24 16:08 Temperature 97.9 F Pulse Rate 66 60 59 L Respiratory Rate 18 14 14 Blood Pressure 103/60 129/83 132/89 Pulse Oximetry 100 100 98 Oxygen Delivery 10/28/24 17:38 10/28/24 17:58 10/28/24 20:00 Temperature Pulse Rate 58 L 56 L 56 L Respiratory Rate 12 16 16 Blood Pressure 132/70 113/70 Pulse Oximetry 100 98 98 Oxygen Delivery Room Air 10/28/24 22:51 10/29/24 04:21 Temperature 98.3 F 98.0 F Pulse Rate 79 61 Respiratory Rate 16 16 Blood Pressure 118/59 L 98/60 L Pulse Oximetry 98 98 Oxygen Delivery Intake/Output Intake/Output: Intake & Output 10/26/24 10/27/24 10/28/24 10/29/24 23:59 23:59 23:59 23:59 Intake Total 1150 1650 Output Total 50 Balance 1100 1650 Meds/Results Medications: Active Medications Generic Name Dose Route Start Last Admin Trade Name Freq PRN Reason Stop Dose Admin Acetaminophen 650 mg 10/28/24 16:21 Acetaminophen 650 Mg Suppository RECTAL Q6H PRN Mild Pain (1-3) or Fever Escitalopram Oxalate 10 mg 10/29/24 09:00 Escitalopram Oxalate 10 Mg Tablet PO DAILY LINDA Sodium Chloride 1,000 mls @ 125 mls/hr 10/28/24 16:25 10/29/24 03:53 Normal Saline Iv IV CONT 125 mls/hr .Q8H LINDA Administration Ceftriaxone Sodium 1 gm/ 50 mls @ 100 mls/hr 10/28/24 21:00 10/28/24 21:23 Sodium Chloride IVPB Infused Q24H LINDA Infusion Metronidazole 500 mg in 100 mls @ 100 mls/hr 10/28/24 22:00 10/29/24 06:12 Flagyl 500 Mg/Iso Soln 100 Ml IVPB Infused Q8H LINDA Infusion Ketorolac Tromethamine 15 mg 10/28/24 20:41 Ketorolac 15 Mg/Ml Vial (*Bkc) IV PUSH 10/30/24 20:40 Q6H PRN Pain Rated 4-6 Ondansetron HCl 4 mg 10/28/24 16:21 Ondansetron Inj 4 Mg/2 Ml Vial IV PUSH Q4H PRN Nausea Promethazine HCl 12.5 mg 10/28/24 16:21 Promethazine Hcl 25 Mg/Ml Ampul IV PUSH Q6H PRN Nausea Radiology Results: ITS Impressions Abdomen/Pelvis CT 10/28/24 13:03 IMPRESSION: 1. Thickening of the henderson of the large bowel. Differential includes incomplete bowel wall distention or colitis. Colitis is favored. Labs Labs: Laboratory Results - last 24 hr 10/28/24 10/28/24 10/28/24 11:32 12:23 12:24 WBC 9.5 RBC 4.98 Hgb 15.0 Hct 45.6 MCV 91.6 MCH 30.1 MCHC 32.9 RDW 12.7 Plt Count 217 MPV 10.9 H Immature Gran % (Auto) 0.6 H Neut % (Auto) 78.3 H Lymph % (Auto) 17.2 L [place] % (Auto) 2.3 L Eos % (Auto) 0.8 Baso % (Auto) 0.8 Lymph # (Auto) 1.64 [place] # (Auto) 0.2 Eos # (Auto) 0.1 Baso # (Auto) 0.1 Abs Immat Gran (auto) 0.06 H Absolute Neuts (auto) 7.5 H Absolute Nucleated RBC 0.000 Nucleated RBC % 0.0 Sodium 141 Potassium 4.0 Chloride 108 H Carbon Dioxide 26 Anion Gap 7 BUN 11 D Creatinine 0.63 L Estim Creat Clear Calc 65 Estimated GFR > 60 Glucose 121 H Calcium 9.4 Magnesium Total Bilirubin 0.7 AST 35 ALT 22 Alkaline Phosphatase 81 Total Protein 7.4 Albumin 4.6 Lipase 57 Urine Color Yellow Urine Appearance Turbid H Urine pH 7.5 Ur Specific Hubbard 1.014 Urine Protein 1+ H Urine Glucose (UA) Negative Urine Ketones 1+ H Ur Blood (Man) 1+ H Urine Nitrate Negative Urine Bilirubin Negative Urine Urobilinogen 1.0 Add Ur Microanalysis Reviewed Leukocyte Esterase Rfl Negative Urine RBC 11-20 H Urine WBC 0-5 Ur Squamous Epith Cells Few Urine Bacteria None seen Urine Casts 0-2 POC Urine HCG, Qual Urine Test Negative 10/28/24 10/28/24 10/29/24 12:26 13:15 04:43 WBC 8.4 RBC 3.96 L Hgb 12.1 Hct 36.9 L MCV 93.2 MCH 30.6 MCHC 32.8 RDW 12.8 Plt Count 168 MPV 11.3 H Immature Gran % (Auto) 0.4 Neut % (Auto) 74.9 H Lymph % (Auto) 16.6 L [place] % (Auto) 7.9 Eos % (Auto) 0.0 Baso % (Auto) 0.2 Lymph # (Auto) 1.39 [place] # (Auto) 0.7 H Eos # (Auto) 0.0 Baso # (Auto) 0.0 Abs Immat Gran (auto) 0.03 Absolute Neuts (auto) 6.3 Absolute Nucleated RBC 0.000 Nucleated RBC % 0.0 Sodium 136 L Potassium 3.5 Chloride 110 H Carbon Dioxide 18 L Anion Gap 8 BUN 13 Creatinine 0.64 L Estim Creat Clear Calc 64 Estimated GFR > 60 Glucose 102 Calcium 8.6 Magnesium 1.8 Total Bilirubin AST ALT Alkaline Phosphatase Total Protein Albumin Lipase Urine Color Urine Appearance Urine pH Ur Specific Hubbard Urine Protein Urine Glucose (UA) Urine Ketones Ur Blood (Man) Urine Nitrate Urine Bilirubin Urine Urobilinogen Add Ur Microanalysis Leukocyte Esterase Rfl Urine RBC Urine WBC Ur Squamous Epith Cells Urine Bacteria Urine Casts POC Urine HCG, Qual Negative Negative Urine Test Quality VTE Prophylaxis VTE prophylaxis: mechanical ordered Hospitalist MIPS Advance Care Plan I have confirmed that the patient's Advanced Care Plan is present, code status is documented, or surrogate decision maker is listed in patient medical record.: Yes Medication Reconciliation I have utilized all available resources to obtain, update and review the patients current medications (includes all prescriptions, OTC, herbals, cannabis, and nutritional supplements).: Yes
[2024-10-29] MEDS: ESCITALOPRAM OXALATE 10 MG TABLET PO (11:01)
[2024-10-29 11:04] VITALS: BP 108/70; PULSE 51; O2SAT 99
[2024-10-29 14:28] VITALS: BP 121/72; PULSE 60; RESP 16; TEMP 36.6; O2SAT 99
[2024-10-29 21:06] VITALS: O2SAT 95
[2024-10-29 21:40] VITALS: BP 140/71; PULSE 60; RESP 16; TEMP 36.9; O2SAT 99
[2024-10-30 04:32] LABS: Hematocrit 36.8 % (37.0-47.0); Hemoglobin 12.2 g/dL (12.0-15.0); Mean Corpuscular HGB Conc 33.2 g/dl (32-36); Mean Corpuscular Hemoglobin 30.7 pg (26-34); Mean Corpuscular Volume 92.7 fl (80-100); Platelet Count Result 148 k/mm3 (150-375); Red Blood Count 3.97 M/mm3 (4.2-5.4); White Blood Count 7.0 K/mm3 (4.5-10.0)
[2024-10-30 05:08] LABS: Alanine Aminotransferase 25 U/L (6-35); Albumin Level 3.2 g/dL (3.5-5.1); Alkaline Phosphatase 54 U/L (38-126); Anion Gap 4 mmol/L (4-12); Aspartate Amino Transferase 31 U/L (14-36); Bilirubin,Total 0.4 mg/dL (0.2-1.3); Blood Urea Nitrogen 15 mg/dL (7-17); Calcium 8.1 mg/dL (8.4-10.2); Carbon Dioxide 22 mmol/L (22-30); Chloride 112 mmol/L (98-107); Estimated CRCL calculation 60 ml/min; Estimated Glomerular Filt Rate > 60; Glucose 99 mg/dL (65-110); Potassium 3.7 mmol/L (3.4-5.0); Sodium 138 mmol/L (137-145); Total Protein 5.4 g/dL (6.3-8.2)
[2024-10-30 06:52] VITALS: BP 133/74; PULSE 60; RESP 16; TEMP 37; O2SAT 99
--- NOTE | 2024-10-30 07:11 | P.DS_ITS ---
DS: Admitting Diagnosis Discharge Date 10/30/2024 Admitting Diagnosis Abdominal pain DS: Discharge Diagnosis Discharge Diagnosis (1) Colitis: Code(s): K52.9 - Noninfective gastroenteritis and colitis, unspecified Status: Acute Assessment and Plan: - CT abd/pelvis: Thickening of the henderson of the large bowel. Differential includes incomplete bowel wall distention or colitis. Colitis is favored. - DC Ceftriaxone + Metronidazole -started on Augmentin and Flagyl - IV fluids: 1L bolus, now on 125 mL/hr - clear liquid diet - pain medication prn and antiemetics p.r.n. - daily clinical reassessment for improvement (2) Recurrent major depressive disorder: Qualifiers: Active/Remission status: currently active Major depression episode severity: unspecified Qualified Code(s): F33.9 - Major depressive disorder, recurrent, unspecified Code(s): F33.9 - Major depressive disorder, recurrent, unspecified Status: Acute Assessment and Plan: - continue home medications: Lexapro - given Valium in the ED for anxiety. Will additionally give Haldol 5 mg IV for nausea/anxiety. DS: Summary Hospital Course Hospital Course: 54 y/o F with PMH of depression, anxiety, kidney stones, and bipolar disorder presents here with nausea, vomiting, diarrhea, and lower abdominal pain. The patient presents here from home via EMS for further evaluation of nausea, vomiting, diarrhea and abdominal pain. She reports sudden onset of symptoms this morning. She describes the abdominal pain as lower, midline, severe, nonradiating, intermittent in severity/coming in waves, aggravated by touch/movement, and no alleviating factors. She denies fever, chills, body aches. She has a history of kidney stones, however she felt the pain was different than her previous experience but her feels it is similar. She reports her previous imaging when she had a kidney stone did not necessarily show it on imaging. Initial VS at presentation: 96.5? F, HR 47, R 140 7/77, and 99% on RA. ED workup showed: No leukocytosis, no anemia, no significant electrolyte derangements, creatinine 0.63 and GFR >60, glucose 121, and UA was turbid with 1+ protein/1+ ketones/1+ blood/11-[address] of the abdomen/pelvis showed thickening of the henderson of the large bowel (incomplete bowel wall distension or colitis, colitis favored). 0 10/30: Patient is able to tolerate the diet. No episodes of diarrhea. On the day of discharge, the patient was seen and examined. Vital signs were stable. Physical exam were stable and labs were reviewed at length. Discharge instructions, medications, and follow-up appointments were discussed with the patient at length and all day questions were answered. ER warnings were given. Patient will be discharged with levofloxacin 500 mg for 3 days Status at Discharge Cognitive/behavioral status at discharge: Stable Time Spent with Patient Time attestation: Total time spent providing and/or coordinating discharge services: 45 minutes Exam Const: Other: Uncomfortable, crying, writing and stretcher in ED, female, nontoxic appearance HENMT: Face/Nose/Sinus: Normal nares present Mouth: Yes moist mucous membranes Eyes: General: appearance normal, both eyes and all related structures Sclera: sclerae normal Pupils: Equal, round and reactive pupils present EOM: EOMs intact bilaterally Resp: Effort & Inspection: normal respiratory effort Auscultation: clear to auscultation bilaterally Cardio: Rate: regular rate Rhythm: regular rhythm Other: S1-S2 present without murmur, rub, ectopy GI: Other: Patient crying out in pain prior to abdomen being palpated. Very light palpation eliciting more crying/discomfort. Normoactive bowel sounds in all quadrants. Abdomen is soft and nondistended. Skin: General skin exam: normal color and no rashes or lesions noted Wounds: no wounds Neuro: Cranial nerves: Yes Equal, round and reactive pupils present Speech: normal speech Motor exam (neuro): 5/5 motor strength present throughout Sensory Exam: normal sensation Other: A&O x4 Extrem: General: normal to inspection Psych: Mental Status: mental status grossly normal Attitude: Belligerent attititude/behavior present Other: Crying, writhing/rolling in stretcher DS: Data Data Completed and Pending Labs on day of discharge: Labs from last 24 hours 10/30/24 04:17 WBC 7.0 RBC 3.97 L Hgb 12.2 Hct 36.8 L MCV 92.7 MCH 30.7 MCHC 33.2 RDW 12.8 Plt Count 148 L MPV 11.1 H Sodium 138 Potassium 3.7 Chloride 112 H Carbon Dioxide 22 Anion Gap 4 BUN 15 Creatinine 0.69 L Estim Creat Clear Calc 60 Estimated GFR > 60 Glucose 99 Calcium 8.1 L Total Bilirubin 0.4 AST 31 ALT 25 Alkaline Phosphatase 54 Total Protein 5.4 L Albumin 3.2 L Discharge Plan Discharge Attending physician on discharge: Miguel French Discharging Clinician: Miguel French Anticipated Discharge Date/Time: 10/30/24 07:17 Patient Disposition: Home Activity: as tolerated Diet: as tolerated Discharge Instructions: Please complete the course of antibiotic for 5 days Return to ED if any concerning symptoms including diarrhea. If you have GI symptoms please visit GI within 2 weeks upon discharge Need to follow up with PCP within 1 week upon discharge Patient Instructions: Antibiotic Form Patient Language: Slovenian Stand Alone Forms: General Discharge Information Follow-up/Referrals: Buck Rowe MD [Primary Care Provider, Family Practice] Referral Note: Patient was treated for colitis in the hospital. Patient is discharged with levofloxacin 500 mg for 5 days Clarence Lawler MD [Physician, Gastroenterology] Referral Note: Patient was treated in the hospital for colitis with antibiotics Discharge Medications: New levofloxacin 500 mg tablet 500 mg PO DAILY Qty: 5 0RF Rx Instructions: Please complete the course for 5 days Saccharomyces boulardii [Daily Probiotic (S. boulardii)] 250 mg capsule 250 mg PO BID Qty: 30 0RF Continued escitalopram oxalate [Lexapro] 10 mg tablet 10 mg PO DAILY Qty: 90 0RF Date of admission: 10/28/24 16:21 Primary Care Provider: Buck Rowe Admitting Provider: Alva Trujillo Attending physician on admission: Alva Trujillo Condition: Stable
== END 2024-10-30 11:59 | disposition home or self-care (01) ==
LOC: ANHED 12:44 → ANH2MED 18:04 → ANH3MEDSUR 10-31 07:55
PROVIDERS: Student in an Organized Health Care Education/Training Program; Admitting Provider Student in an Organized Health Care Education/Training Program; Emergency Provider Emergency Medicine; PCP Family Medicine; Visit Provider General Practice
DX: K52.9 Noninfective gastroenteritis and colitis, unspecified (principal); F33.9 Major depressive disorder, recurrent, unspecified; F17.290 Nicotine dependence, other tobacco product, uncomplicated
CPT/HCPCS: 36415; 74177; 80048; 80053; 81001; 81025; 83690; 83735; 85025; 85027; 93005; 96361; 96365; 96367; 96372; 96374; 96375; 96376; 99285; A9270; G0378; J0500; J0696; J1630; J1836; J1885; J2550; J3360; J7030; Q9967

== ENCOUNTER 2024-11-02 15:51 | Outpatient (CLI) | payer BC, SELFPAY ==
--- OUTSIDE RECORDS SUMMARY | 2018-06-21 06:30 | XMS_ITS | Continuity of Care Document ---
Author Organization [facility] Address [address] [place] [address] Phone Care Team Providers Care Loom Starter Name Role Phone Abdulaziz Nicole MD Unavailable Unavailable Allergies, Adverse Reactions, Alerts Substance Reaction Status Criticality No Known Allergies Active No Inform ation Medications Medication Instructions Dosage Effective Dates (start - stop) Status Comments Zoloft 50 mg tablet take 1.5 tablet by o ral route every day 75 MG - Active Procedures Procedure Date OFFICE/OUTPATIENT VISIT, EST PREV VISIT, EST, AGE 40-64 OFFICE/OUTPATIENT VISIT, EST OFFICE/OUTPATIENT VISIT, EST PREV VISIT, NEW, AGE 40-64 OFFICE/OUTPATIENT VISIT, NEW Advance Directives Directive Yes / No Effective Date File Name No Information Encounters Encounter Description Practice Location Reason(s) For Visit Diagnoses Date Provider Providers Copied on Encounter OFFICE/OUTPA TIENT VISIT, EST [facility], [address] [place], [place] [address], [place], [id number], tel:[phone] [facility] flank pain1 (chief complaint) sore throat1 (chief complaint) Renal stoneHematuriaAcute upper respiratory infection, unspecifiedLeukocyt osis 9 Corey Cintron. [address] [place] [address], [id number] , [place]. tel:[phone] Referring Provider: Abdulaziz Nicole, [address] [place] [address], [id number]. tel:[phone] PREV VISIT, EST, AGE 40-64 [facility], [address], [place], [place], [id number], [place] tel:[phone] [facility] PHysical (chief complaint) Encntr for general adult medical exam w/o abnormal findings 9 Corey Cintron. [address], [place], [place], [id number] , [place]. tel:[phone] Referring Provider: Abdulaziz Nicole, [address], [place], [place], [id number]. tel:[phone] OFFICE/OUTPA TIENT VISIT, [facility], [address], [place], [place], [id number], [place] tel:[phone] [facility] nevus1 (chief complaint) UTI1 (chief complaint) copd1 (chief complaint) anxiety1 (chief complaint) Nevus, non-neoplasticGener alized Anxiety DisorderEmphysemaUr inary tract infection 8 Corey Cintron. [address], [place], [place], [id number] , [place]. [phone] Referring Provider: Lyndon Palma [address], [place], [place], [id number]. tel:[phone] OFFICE/OUTPA TIENT VISIT, [facility], [address], [place], [place], [id number], [place] tel:[phone] [facility] COPD1 (chief complaint) night sweat1 (chief complaint) hep C (chief complaint) facial lesion (chief complaint) EmphysemaNevus, non-neoplasticNight sweatsContact with and (suspected) exposure to viral hepatitis 8 Corey Cintron. [address], [place], [place], [id number] , [place]. [phone] Referring Provider: Lyndon Palma [address], [place], [place], [id number]. tel:[phone] PREV VISIT, NEW, AGE 40-64 [facility], [address], [place], [place], [id number], [place] tel:[phone] [facility] Physical (chief complaint) Encounter for general adult medical exam w abnormal findingsGeneralized Anxiety DisorderAllergic rhinitisNight sweats Corey Cintron. [address], [facility] [address], [place], [place], [id number] , [place]. [phone] Referring Provider: Abdulaziz Nicole, [address] [facility] [address], [place], [place], [id number]. tel:[phone] Family History Family Member Type Diagnosis Age At Onset Father Problem (finding) cardiac valve issue Brother Problem (finding) Alive and well Mother Problem (finding) leukemia Father Problem (finding) Alzheimer's disease Mother Problem (finding) Hypertension Mother Problem (finding) Diabetes mellitus type 2 Payers Payer name Insurance type Covered libertarian ID Authoriza tion(s) No Information Social History Type Description Quantity Date Captured Comments Alcohol Use Details No Caffeine Use Details Unknown Tobacco Use Status Ex-cigarette smoker 019 Smoking Status Former smoker Smoking Tobacco Use Details Cigarette: Age Started: 14, Age Stopped: 47, Years Used 33 Cigarette: 1.5 Packs per day, Pack Year: 49.5 Sex Female Vital Signs Date / Time: Height Weight BMI Pulse Rate Blood Pressure Temperature Respiratory Rate Body Surface Area Head Circumference BMI percentile Pulse Ox Inhaled Ox 12:48 PM 63.00 in 111.00 lbs 19.6 6 kg/m eter (2) 60 /min 110/74 mm[Hg] 98.2 F 16 /min Chief Complaint And Reason For Visit From encounter dated '06/21/2018 11:30'. flank pain1 (chief complaint). Description: Pt c/o sudden onset of left flank pain and left lower quadrant pain since 3 days ago. Pt denies any fever, chill, Pt did have mild nausea but no vomiting Pt denies any bloody diarrhea, constipation Pt went to Er and Ct showed small non obstructing right renal stone. Pt was given flomax, toradol, phenergan and norco for her symptoms. Pt states that her left flank pain and left lower quadrant pain has been getting better. sore throat1 (chief complaint). Description: pt c/o sore throat, productive coughing with green phlegm, since yesterday. Pt has purulent sinus drainage as well Pt fernando any ear pain. Pt denies any drooling or any trouble with swallowing. Plan Of Treatment Date Type Action Status Goal Tobacco cessation counseling completed Goal Tobacco cessation counseling completed Referral Ordered: Dhruv Mesa (related to Nevus, non-neoplastic) ordered Referral Referred To: Dhruv Mesa [place] [id number] [place] [address] [place] [id number] Ordered: Referrals: Dhruv Mesa. Evaluate and treat ordered Referral Ordered: CHEST X-RAY PA/LAT TWO-VIEWS ordered Referral Ordered: MAMMOGRAM, SCREENING ordered History Of Present Illness Encounter Date Complaint History Of Prese nt Illness flank pain1 Pt c/o sudden on set of left flank pain and left lower quadrant pain since 3 days ago. Pt denies any fever, chill, Pt did have mild nausea but no vomiting Pt denies any bloody diarrhea, constipation Pt went to Er and Ct showed small non obstructing right renal stone. Pt was given flomax, toradol, phenergan and norco for her symptoms. Pt states that her left flank pain and left lower quadrant pain has been getting better. sore throat1 pt c/o sore thro at, productive coughing with green phlegm, since yesterday. Pt has purulent sinus drainage as well Pt fernando any ear pain. Pt denies any drooling or any trouble with swallowing. PHysical Pt needs annual physical. Pt has chronic anxiety and depression Pt doing ok with zoloft Pt denies any suicidal or homicidal thought. Pt denies any crying spells Pt had lab done recently which showed postmenopausal status. Pt has not seen plastic surgery yet for her right cheek spot. PT denies any other complaints nevus1 Pt had punch bio psy of right cheek and was benign Pt has a red spot on cheek area for many years without any size change. Pt denies any bleeding or scab UTI1 pt c/o urinary b urning and frequency and urgency for 2 days Pt denies any pelvic pain pt denies any flank pain Pt notices some blood in urine as well copd1 Pt states that s he quit smoking for 3 weeks. Pt randal any sob and she does not need to use ventolin at all anxiety1 Pt c/o anxiety a nd depression Pt states that current dose of zoloft is not working so she went up to 75 mg daily and she is doing much better Pt denies any suicidal or homicidal thought facial lesion Pt states that r ight side facial lesion for 4 weeks.Pt notices a dent to the area. Pt denies any bleeding or drainage. Pt denies any scab COPD1 Pt feels sob yashira quently, worse with exertion. Pt has signs of COPD. Pt smokes about 1.5 ppd. Pt denies any acute sob. Pt states that she needs to use inhaler once per month night sweat1 Pt has night swe at. Pt has not done lab yet. pt denies any coughing. Pt had benign chest xray hep C Pt has history o f hep C exposure. her previous boyfriend cheated on her with needle user. Pt wants hep C checked. Pt denies any abd pain Physical Pt needs annual physical. Pt has chronic anxiety and depression. Pt takes zoloft and she is doing ok. Pt denies any suicidal or homicidal thought. pt denies any cyring spells. Pt is doing counseling also. Pt states that above regimen doing ok for her anxiety and depression. pt also takes flonase for sinus allergy. Pt has been having night sweat for one year. Pt has mild dry cough chronically. Pt uses venotlin 1-2 per 6 months. Pt denies any acute sob. Pt denies travel outside [place]. pt denies any hot flash. Instructions Date Instruction Additional Infor mation Increase physical activity Relat ed to Nevus, non-neoplastic Prescribed Activity and Exercise Education Related to Dietary Surveillance and Counseling Prescribed Diet Educ ation/Lifestyle Education Regarding Diet Related to Dietary Surveillance and Counseling Quit smoking Related to Emphy sema Prescribed Activity and Exercise Education Related to Dietary Surveillance and Counseling Prescribed Diet Educ ation/Lifestyle Education Regarding Diet Related to Dietary Surveillance and Counseling Quit smoking Related to Encou nter for general adult medical exam w abnormal findings Assessments Type Assessment Date assessment Renal stone assessment Hematuria assessment Acute upper respiratory infectio n, unspecified assessment Leukocytosis Mental Status Date Cognitive Assessment Orientation - [place] ed to time, place, person, situation.
--- OUTSIDE RECORDS SUMMARY | 2024-11-02 15:54 | XMS_ITS | Clinical Summary ---
Author Organization [facility] Address [address] [place] [address] Care Team Providers Care Blasting Cap Assembler Name Role Phone Unavailable Primary Care Provider Unavailabl e Source Comments [facility],non-owned Affiliates and Associated Physician Practices is amultiple site organization consisting of ambulatory clinics and hospital sitesin [place], [place], [place] and [place]. This disclosure is being madepursuant to the Care Everywhere program and may not contain all information available regarding this patient. 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
[2024-11-02 16:41] LABS: Add Urine Microscopic? YES; Appearance Urine Cloudy (Clear); Glucose Urine UA Negative (Negative); Leukocyte Esterase Ur Trace LEU/UL (Negative); Nitrate Urine Negative (Negative); Non Pathogenic Casts 0-2; Specific Grav Ur 1.003 (1.001-1.035)
[2024-11-02 21:58] LABS: MALB Creatinine Ratio 87.1 mg/g (0-30)
== END 2024-11-02 15:52 | disposition home or self-care (01) ==
LOC: ANHLAB 15:52
PROVIDERS: PCP Family Medicine; Visit Provider Nurse Practitioner Family
DX: R73.01 Impaired fasting glucose (principal); Z13.228 Encounter for screening for other metabolic disorders; R30.0 Dysuria
CPT/HCPCS: 81001; 82043; 87086

== ENCOUNTER 2024-12-27 10:05 | Outpatient (CLI) | payer BC, SELFPAY ==
--- NOTE | ~2024-12-27 | DEXA_ITS ---
Bone Density Report Name: JEFE SAMUELS Age: 54 Sex: Female Ethnicity: White Date of : 1970 Indication: postmenopausal; screening for osteoporosis; Referring Provider: MATHEUS CORREIA Study: Bone densitometry was performed. Exam Date: December 27, 2024 Accession number: [id number] Bone Density: Region BMD T-score Z-score Classification AP Spine(L1-L4) 0.766 -2.6 -1.4 Osteoporosis Femoral Neck (Left) 0.567 -2.5 -1.4 Osteoporosis Total Hip (Left) 0.744 -1.6 -0.9 Osteopenia Femoral Neck (Right) 0.626 -2.0 -0.9 Osteopenia Total Hip (Right) 0.826 -1.0 -0.2 Normal Femoral Neck Mean 0.597 -2.3 -1.2 Osteopenia Total Hip Mean 0.785 -1.3 -0.6 Osteopenia World Health Organization criteria for BMD impression classify patients as: Normal (T-score at or above -1.0), Osteopenia (T-score between -1.0 and -2.5), or Osteoporosis (T-score at or below -2.5). 10-year Fracture Risk: FRAX not reported because: Some T-score for Spine Total or Hip Total or Femoral Neck at or below -2.5 Clinical Information Provided by Patient: Patient maximum height was 63 Menopause Age: 49 No regular weight bearing exercise Drinks caffeinated beverages Onset of menses at age 14 Number of children 1 Impression: The patient has osteoporosis, based on the Total Spine T-score. Discussion: INCREASED RISK OF FRACTURE. BONE DENSITY IS UNDESIRABLY LOW AT ONE OR MORE SKELETAL SITES, CONSISTENT WITH POSTMENOPAUSAL OSTEOPOROSIS. This patient's lowest T-score meets the World Health Organization's (WHO) criteria for osteoporosis at one or more sites (T-score -2.5 or below). In untreated patients, the risk of osteoporotic fracture increases approximately two-fold for each 1.0 SD decrease in T-score. Low bone density is not the only risk factor for fracture; also consider factors such as patient's age, frailty or poor health, risk of falling, risk of injury, previous osteoporotic fracture, family history of osteoporosis, cigarette smoking, low body weight, etc. Not everyone with low bone mineral density has osteoporosis; osteomalacia and other metabolic bone disorders should also be considered. Patients who have osteoporosis should be evaluated for specific diseases and conditions (secondary causes) that may cause or contribute to bone loss. The [place] Association of Clinical Endocrinologists (AACE) and National Osteoporosis Foundation (NOF) recommend pharmacologic intervention for all postmenopausal women whose T-score is in this range. The patient should follow a healthful lifestyle (good nutrition with adequate calcium and vitamin D, and appropriate weight-bearing exercise). Follow-Up: Consider a repeat BMD and Vertebral Fracture Assessment (VFA) exam in 2 years or sooner if medically necessary, to reassess this patient's status. Reported by: MASSIMO on 12/27/2024 11:42:00 AM. Reviewed, dictated and finalized at location A.
--- OUTSIDE RECORDS SUMMARY | 2024-12-27 12:04 | XMS_ITS | Clinical Summary ---
Author Organization [facility] Address [address] [place] [address] Care Team Providers Care Traffic Checker Name Role Phone Unavailable Primary Care Provider Unavailabl e Source Comments [facility],non-owned Affiliates and Associated Physician Practices is amultiple site organization consisting of ambulatory clinics and hospital sitesin [place], [place], [place] and [place]. This disclosure is being madepursuant to the Care Everywhere program and may not contain all information available regarding this patient. 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
== END 2024-12-27 10:06 | disposition home or self-care (01) ==
PROVIDERS: PCP Family Medicine; Visit Provider Family Medicine
DX: M81.0 Age-related osteoporosis without current pathological fracture (principal)
CPT/HCPCS: 77080